=== PATIENT | male | born 1940 | race Caucasian/White ===

== ENCOUNTER 2019-01-08 20:37 | Inpatient (IN) ==
--- OUTSIDE RECORDS SUMMARY | 2019-01-08 20:40 | External Medical Summary | Continuity of Care Document ---
:1940 Author Name Yu Daly Address Unavailable Unavailable , Care Team Providers Name Role Phone Tj Daly Unavailable [email or web address] [place] Farhan Roy Unavailable Unavailable Unavailable Unavailable Unavailable Assessments Assessed Problems:History of basal cell carcinomaActinic keratosis Problems History of basal cell carcinoma (V10.83) (Z85.828) Actinic keratosis (702.0) (L57.0) Allergies and Adverse Reactions Penicillins (Allergy) Sulfa Drugs (Allergy) Medications Flonase 50 MCG/ACT SUSP Refills: 0 Viagra 100 MG Oral Tablet Refills: 0 metFORMIN HCl - 1000 MG Oral Tablet; TAKE 1 TABLET TWICE ATIYA LY. Quantity: 60 Refills: 0 Aspirin 81 MG TABS Refills: 0 Atorvastatin Calcium 20 MG Oral Tablet; TAKE 1 TABLET DAILY. Quantity: 30 Refills: 6 Tylenol Extra Strength 500 MG Oral Tablet Refills: 0 Procedures Procedures not documented Immunizations Immunizations not documented Family History Mother Family history of skin cancer (V16.8) (Z80.8) Status: Active Social History - Smoking Status Never smoker Interventions Follow-ups/ReferralsFollow-up as needed; Done: 01 Jan 2017 Plan of Treatment Planned Observations Planned Goals not documented Results No Known Results Results not documented Encounters Appointment; Rah Spencer M.D. 01-Jan-2017 14:30 Encounter Diagnosis: Problem not documented
[2019-01-08 22:52] LABS: Basophils # (auto) 0.02 K/uL (0-0.2); Basophils % (auto) 0.2 %; Eosinophils # (auto) 0.17 K/uL (0-0.5); Eosinophils % (auto) 2.1 %; Hematocrit (blood only) 37.2 % (42-52); Hemoglobin 12.4 g/dL (14.0-18.0); Immature Granulocytes # (auto) 0.01 K/uL (0.00-0.02); Immature Granulocytes % (auto) 0.1 %; Lymphocytes # (auto) 0.63 K/uL (1.2-3.4); Lymphocytes % (auto) 7.8 %; Mean Corpuscular Hemoglobin 29.4 pg (25-34); Mean Corpuscular Hgb Conc 33.3 g/dL (32-36); Mean Corpuscular Volume 88.2 fL (80-100); Mean Platelet Volume 8.6 fL (7.4-10.4); Monocytes # (auto) 0.66 K/uL (0.11-0.59); Monocytes % (auto) 8.2 %; Neutrophils # (auto) 6.59 K/uL (1.4-6.5); Neutrophils % (auto) 81.6 %; Platelet Count 270 K/uL (130-400); RDW Coefficient of Variation 12.7 % (11.5-14.5); RDW Standard Deviation 40.8 fL (36.4-46.3); Red Blood Count 4.22 M/uL (4.7-6.1); White Blood Count 8.08 K/uL (4.8-10.8)
[2019-01-08 23:08] LABS: BUN Creatinine Ratio 23.9 (10-20); Blood Urea Nitrogen 18 mg/dl (7-18); Calcium 8.7 mg/dl (8.5-10.1); Carbon Dioxide 27 mmol/L (21-32); Chloride 98 mmol/L (98-107); Est GFR (African American) 101.8; Est GFR (Non-African American) 87.9; Glucose 130 mg/dl (70-99); Potassium 4.2 mmol/L (3.5-5.1); Sodium 133 mmol/L (136-145)
[2019-01-08 23:09] LABS: Partial Thromboplastin Time 27.1 Seconds (21.0-31.0); Prothrombin Time 10.5 Seconds (9.0-12.0)
--- NOTE | 2019-01-08 23:12 | XRay Report ---
XR hip LT 2V w pelvis CLINICAL HISTORY: 78 years-old Male presenting with fall, left hip pain. TECHNIQUE: Frontal view of the pelvis and frontal and frog-leg lateral views of the left hip were obt ained. COMPARISON: None. FINDINGS: Nondisplaced transcervical fracture of the left femoral neck. There is mild impaction predominantly a t the superior margin. There is mild valgus angulation. The left femoral head remains congruent in th e acetabulum. Moderate degenerative changes of the left hip including suspected joint space loss as w ell as osteophytosis. A lesser degree of degenerative change in the right hip. Bony pelvis intact. Ar harish lines of the sacrum intact. Mild degenerative changes in the lower lumbar spine. Coil rachel p roject over the central and left abdomen indicative of prior hernia repair. Additional coil stable pr ojects in the parasymphyseal region. Surgical clip noted in the right lower quadrant with a moderate stool burden. IMPRESSION: 1. Mildly impacted and angulated transcervical left femoral neck fracture. 2. Moderate left hip degenerative change. Electronically signed by: Champ Aceves M.D. 01/08/2019 11:10 PM
[2019-01-08 23:18] LABS: Appearance Urine Clear (Clear); Bilirubin Urine Negative (Negative); Blood Urine Negative (Negative); Color Urine Yellow; Glucose Urine UA Negative (Negative); Ketones Urine Negative (Negative); Leukocyte Esterase Urine Negative (Negative); Nitrite Urine Negative (Negative); Protein Urine Negative (Negative); Specific Gravity Urine 1.024 (1.000-1.030); Urobilinogen Urine Negative (Negative); pH Urine 5.5 (4.5-7.5)
[2019-01-08] MEDS ORDERED: ACETAMINOPHEN 325 MG TAB PO STA (23:33)
--- NOTE | 2019-01-08 23:34 | History & Physical Report ---
Date of Service January 08, 2019 Assessment & Plan (1) Closed fracture of left hip: Secondary to mechanical fall hypertension, stable hyperlipidemia on statin Rx DM 2 on oral medications. Well-controlled as of recent outpatient hemoglobin A1c of 21 December 2015 Normocytic anemia, unknown duration GMF Orthopedics consult RE left hip fracture (Patient's requesting for Dr. Guzmán of [facility] No medical contraindication to surgery if recommended by Orthopedics and patient/family agreeable to attendant procedural benefits and risks. ISS BG goal 140-180, update hemoglobin A1c Anemia work-up, transfuse PRBC if hemoglobin less than 7 and/or for symptomatic anemia DVT prophylaxis SCDs. Recommend pharmacologic anticoagulation if stool Hemoccult negative and bleeding risk deemed to be minimal and negligible pending Orthopedics evaluation. Full code Patient's requesting updates from providers. Ms. Ingrid Ferguson, contact #[phone]. History of Present Illness Chief Complaint: Left hip pain Primary Care Provider: Dr. DORA MCGARRY from [place], [place] History obtained from patient, family, and records. Medical history significant for hypertension, hyperlipidemia, history diverticulosis, colonic polyps, DM 2 on oral medications. Patient is a current resident of [place], [place] who is currently in [employer] [place] for the football season. Patient was crossing the road around lunchtime today when he got distracted subsequently tripping over a curb and landing on his left side. Had trouble getting up. No head trauma, no chest pain, no S OB, no LOC. Refused ER consultation due to a lunch time business meeting. Persistent left-sided hip pain at the restaurant and at home. Medical History as above Surgical History : Cholecystectomy, cataract surgery, hernia repair, laser trabeculoplasty, no surgery, knee surgery Family History : Heart disease Personal/Social history : Non-smoker, occasional Et[employer] intake, retired [employer] employee Baseline Functionality : able to do at least 8000 steps a day at home without rest/exertional chest pain, S OB prior to injury Allergies Allergy/AdvReac Type Severity Reaction Status Date / Time Penicillins Allergy Intermediate joints Verified 01/09/19 00:00 swell/redness Sulfa (Sulfonamide Allergy Unknown Unknown Verified 01/09/19 00:00 Antibiotics) Home Medications Home Medications Medication Instructions Recorded Confirmed Type aspirin 81 mg PO DAILY 01/09/19 01/09/19 History fluticasone propionate [Flonase 2 spray INTRANASAL DAILY 01/09/19 01/09/19 History Allergy Relief] metformin 1,000 mg PO BID 01/09/19 01/09/19 History simvastatin 20 mg PO PM 01/09/19 01/09/19 History Past Med/Surg History Medical History Diabetes Surgical History History of elbow surgery Social History Preferred Language: Sinhala Communication Ability: Effective Autographer Required: No Beliefs That Will Affect Care: None Current Living Situation: Spouse Other Information That Helps Us Care for You: No Feels Safe at Home: Yes Safety Concerns: Feels Safe At This Time Smoking Status: Never smoker Hx Alcohol Use: No Hx Substance Use: No Review of Systems Review of Systems: As per HPI, all 10 systems reviewed, all other ROS negative Physical Exam Physical Exam: GENERAL: Comfortable, pleasant, no respiratory distress SKIN: Pallor , warm HEENT: pale palpebral conjunctivae, no ptosis, dry buccal mucosa NECK : Supple, no tenderness CHEST : CTA, no tenderness HEART : RRR, no obvious murmurs ABDOMEN: Soft, nontender EXTREMITIES : Left hip tenderness, no LE swelling NEUROLOGIC : Coherent, no facial asymmetry, no other gross focality Results & Data Vital Signs (Past 12 Hours) Vital Signs Temp Pulse Resp BP Pulse Ox 01/08/19 22:47 87 18 129/90 94 01/08/19 20:45 36.6 C 90 18 121/73 96 Laboratory Results Laboratory Results WBC 8.08 K/uL (4.8-10.8) 01/08/19 22:43 RBC 4.22 M/uL (4.7-6.1) L 01/08/19 22:43 Hgb 12.4 g/dL (14.0-18.0) L 01/08/19 22:43 Hct 37.2 % (42-52) L 01/08/19 22:43 MCV 88.2 fL (80-100) 01/08/19 22:43 MCH 29.4 pg (25-34) 01/08/19 22:43 MCHC 33.3 g/dL (32-36) 01/08/19 22:43 RDW Std Deviation 40.8 fL (36.4-46.3) 01/08/19 22:43 RDW Coeff of Kailyn 12.7 % (11.5-14.5) 01/08/19 22:43 Plt Count 270 K/uL (130-400) 01/08/19 22:43 MPV 8.6 fL (7.4-10.4) 01/08/19 22:43 Immature Gran % (Auto) 0.1 % 01/08/19 22:43 Neut % (Auto) 81.6 % 01/08/19 22:43 Lymph % (Auto) 7.8 % 01/08/19 22:43 [place] % (Auto) 8.2 % 01/08/19 22:43 Eos % (Auto) 2.1 % 01/08/19 22:43 Baso % (Auto) 0.2 % 01/08/19 22:43 Immature Gran # (Auto) 0.01 K/uL (0.00-0.02) 01/08/19 22:43 Neut # (Auto) 6.59 K/uL (1.4-6.5) H 01/08/19 22:43 Lymph # (Auto) 0.63 K/uL (1.2-3.4) L 01/08/19 22:43 [place] # (Auto) 0.66 K/uL (0.11-0.59) H 01/08/19 22:43 Eos # (Auto) 0.17 K/uL (0-0.5) 01/08/19 22:43 Baso # (Auto) 0.02 K/uL (0-0.2) 01/08/19 22:43 PT 10.5 Seconds (9.0-12.0) 01/08/19 22:43 INR 1.0 (0.9-1.1) 01/08/19 22:43 APTT 27.1 Seconds (21.0-31.0) 01/08/19 22:43 PTT Ratio 1.0 01/08/19 22:43 Sodium 133 mmol/L (136-145) L 01/08/19 22:43 Potassium 4.2 mmol/L (3.5-5.1) 01/08/19 22:43 Chloride 98 mmol/L (98-107) 01/08/19 22:43 Carbon Dioxide 27 mmol/L (21-32) 01/08/19 22:43 Anion Gap 8.0 (3-11) 01/08/19 22:43 BUN 18 mg/dl (7-18) 01/08/19 22:43 Creatinine 0.75 mg/dl (0.6-1.4) 01/08/19 22:43 Est Cr Clr Drug Dosing Not Reportable 01/08/19 22:43 Est GFR ( Amer) 101.8 01/08/19 22:43 Est GFR (Non-Af Amer) 87.9 01/08/19 22:43 BUN/Creatinine Ratio 23.9 (10-20) H 01/08/19 22:43 Glucose 130 mg/dl (70-99) H 01/08/19 22:43 Calcium 8.7 mg/dl (8.5-10.1) 01/08/19 22:43 Magnesium 2.0 mg/dl (1.8-2.4) 01/08/19 22:43 Urine Color Yellow 01/08/19 23:00 Urine Appearance Clear (Clear) 01/08/19 23:00 Urine pH 5.5 (4.5-7.5) 01/08/19 23:00 Ur Specific [place] 1.024 (1.000-1.030) 01/08/19 23:00 Urine Protein Negative (Negative) 01/08/19 23:00 Urine Glucose (UA) Negative (Negative) 01/08/19 23:00 Urine Ketones Negative (Negative) 01/08/19 23:00 Urine Blood Negative (Negative) 01/08/19 23:00 Urine Nitrite Negative (Negative) 01/08/19 23:00 Urine Bilirubin Negative (Negative) 01/08/19 23:00 Urine Urobilinogen Negative (Negative) 01/08/19 23:00 Ur Leukocyte Esterase Negative (Negative) 01/08/19 23:00 Diagnostic Findings Left hip x-ray: 1. Mildly impacted and angulated transcervical left femoral neck fracture. 2. Moderate left hip degenerative change. Chest x-ray as per my interpretation : atelectasis EKG as per my interpretation : Rate 80, NSR, normal axis, no ischemia (1) Closed fracture of left hip Encounter type: initial encounter Qualified Code(s): S72.002A - Fracture of unspecified part of neck of left femur, initial encounter for closed fracture
[2019-01-08 23:57] LABS: Alanine Aminotransferase 17 U/L (12-78); Albumin Level 3.6 gm/dl (3.4-5.0); Alkaline Phosphatase 113 U/L (45-117); Bilirubin Direct 0.1 mg/dl (0-0.2); Bilirubin,Total 0.3 mg/dl (0.2-1); Creatine Kinase 51 U/L (39-308); Total Protein 7.3 gm/dl (6.4-8.2)
[2019-01-09] MEDS ORDERED: CEFAZOLIN 1000MG 1,000 MG/7.5 ML SYR IV SCH
[2019-01-09 00:06] LABS: Aspartate Aminotransferase 6 U/L (15-37)
[2019-01-09] MEDS ORDERED: GLUCOSE 40% GEL 15 GM TUBE PO PRN (00:47)
[2019-01-09] MEDS ORDERED: DEXTROSE 50% 50 ML SYRINGE IV PRN (00:47)
[2019-01-09] MEDS ORDERED: MAGNESIUM HYDROXIDE SUSP 30 ML UDC PO PRN (00:47)
[2019-01-09] MEDS ORDERED: CARBOHYDRATES FOR HYPOGLYCEMIA PO PRN (00:47)
[2019-01-09] MEDS ORDERED: MoRPHine SULFATE 2 MG/ML CARP IV PRN (00:47)
[2019-01-09] MEDS ORDERED: bisacodyL 10 MG SUPP PR PRN (00:47)
[2019-01-09] MEDS ORDERED: PROMETHAZINE HCL 12.5 MG in SODIUM CHLORIDE 0.9% 50 ML IV PRN (00:47)
[2019-01-09] MEDS ORDERED: GLUCOSE 10 TABS/TUBE PO PRN (00:47)
[2019-01-09] MEDS ORDERED: OXYCODONE HCL IR 5 MG TAB (IMMEDIATE RELEASE) PO PRN (00:47)
[2019-01-09] MEDS ORDERED: NALOXONE HCL 0.4 MG/1 ML VIAL/CARP IV PRN ×2 (00:47→18:51)
[2019-01-09] MEDS ORDERED: GLUCAGON FOR INJ 1 MG VIAL SQ PRN (00:47)
--- NOTE | 2019-01-09 01:09 | Emergency Department Note ---
Entered by Angelika Ely acting as a scribe for Jama Ndiaye MD History of Present Illness General Chief complaint: Fall Stated complaint: FALL, LT HIP PAIN Source: patient History of Present Illness Onset (ago): hour(s) Location: head (Fall) Pain Consistency: + other (Episode) Maximum Pain Intensity: 7 Quality: + sharp Exacerbated By: + movement Associated symptoms: no chest pain and no other (Abdominal pain, shoulder pain, knee pain, ankle pain) Treatments prior to arrival: none The patient is a 78 year old male with a past medical history of DM presenting to the Emergency Department complaining of an episode of a fall starting at 1115 today. The patient reports that he tripped over a curb falling on his left side. He states that his left hip is painful and that walking worsens his pain. He describes his hip pain as a sharp sensation when he tried to put pressure on it. He notes that he took no medications [employer] for his symptoms. He adds that his tetanus shot is up to date. The patient denies chest pain, abdominal pain, shoulder pain, knee pain and ankle pain. Home Medications Home Medications Medication Instructions Recorded Confirmed Type aspirin 81 mg PO DAILY 01/09/19 01/09/19 History fluticasone propionate [Flonase 2 spray INTRANASAL DAILY 01/09/19 01/09/19 History Allergy Relief] metformin 1,000 mg PO BID 01/09/19 01/09/19 History simvastatin 20 mg PO PM 01/09/19 01/09/19 History Allergies Allergy/AdvReac Type Severity Reaction Status Date / Time Penicillins Allergy Intermediate joints Verified 01/09/19 00:00 swell/redness Sulfa (Sulfonamide Allergy Unknown Unknown Verified 01/09/19 00:00 Antibiotics) Past Med/Surg History Medical History Diabetes Surgical History History of elbow surgery Social History Feels Safe at Home: Yes Smoking Status: Never smoker Review of Systems See HPI for pertinent positives & negatives. and A total of 10 systems reviewed and were otherwise negative Physical Exam Vital Signs Vital Signs - 24 hr 01/08/19 20:45 01/08/19 22:47 Temperature 36.6 C Temperature Source Oral Sepsis Recent Fever Within 48 Hours No Sepsis Action Taken by Nursing No Action Required Pulse Rate 90 87 Pulse Rate from SpO2 Sensor 83 Respiratory Rate 18 18 Respiratory Depth Normal Blood Pressure 121/73 129/90 Blood Pressure Mean 89 103 Pulse Oximetry 96 94 Oxygen Delivery Method Room Air Room Air Constitutional: Vital signs reviewed. Eyes: Pupils are equal round reactive to light. Conjunctiva are noninjected. ENT: Pharynx is clear without erythema or exudate. Mucous membranes are moist. Neck supple without meningeal signs. Respiratory: Clear to auscultation bilaterally. Breath sounds are equal bilaterally. Cardiovascular: Regular rate and rhythm. No rubs or gallops. GI: Soft, nondistended and nontender. Bowel sounds are present. Musculoskeletal: No peripheral edema. Tenderness over the left hip. No shorte ambar. Erythema over left elbow without bony tenderness. Abrasion to left knee without bony tenderness. No ankle tenderness. No midline tenderness to the cervical spine. Integumentary: No cyanosis. Neurological: The patient is awake and alert. No focal deficits. Psychiatric: Normal affect. Course 2149: The patient was evaluated in room C1B, and a complete history and physical examination were performed. 2225: I discussed the patients case with Dr. Yi Pemberton hospitalist. He will evaluate the patient for further management. 2227: I updated the patient at this time. Consultations Consultation #1: I discussed the patients case with Dr. Yi Pemberton primary children's hospitalist. He will evaluate the patient for further management. Time: 22:25 Administered Medications Discontinued Medications Acetaminophen (Tylenol) 650 mg PO NOW STA Stop: 01/08/19 23:34 Last Admin: 01/08/19 23:50 Dose: 650 mg Documented by: [id number] Medical Decision Making Differential Diagnosis Differentials include hip fracture, sprain, contusion, dislocation and fall amongst others. Medical Records Attestation: I reviewed the patient's medical records. Home Medications Current Medication List: was personally reviewed by me Laboratory Data Attestation: I reviewed the patient's lab results. Result diagrams: 01/08/19 22:43 01/08/19 22:43 Lab Results 01/08/19 01/08/19 01/08/19 Range/Units 22:43 22:43 22:43 WBC 8.08 (4.8-10.8) K/uL RBC 4.22 L (4.7-6.1) M/uL Hgb 12.4 L (14.0-18.0) g/dL Hct 37.2 L (42-52) % MCV 88.2 (80-100) fL MCH 29.4 (25-34) pg MCHC 33.3 (32-36) g/dL RDW Std Deviation 40.8 (36.4-46.3) fL RDW Coeff of Kailyn 12.7 (11.5-14.5) % Plt Count 270 (130-400) K/uL MPV 8.6 (7.4-10.4) fL Immature Gran % (Auto) 0.1 % Neut % (Auto) 81.6 % Lymph % (Auto) 7.8 % [place] % (Auto) 8.2 % Eos % (Auto) 2.1 % Baso % (Auto) 0.2 % Immature Gran # (Auto) 0.01 (0.00-0.02) K/uL Neut # (Auto) 6.59 H (1.4-6.5) K/uL Lymph # (Auto) 0.63 L (1.2-3.4) K/uL [place] # (Auto) 0.66 H (0.11-0.59) K/uL Eos # (Auto) 0.17 (0-0.5) K/uL Baso # (Auto) 0.02 (0-0.2) K/uL PT 10.5 (9.0-12.0) Seconds INR 1.0 (0.9-1.1) APTT 27.1 (21.0-31.0) Seconds PTT Ratio 1.0 Sodium (136-145) mmol/L Potassium (3.5-5.1) mmol/L Chloride (98-107) mmol/L Carbon Dioxide (21-32) mmol/L Anion Gap (3-11) BUN (7-18) mg/dl Creatinine (0.6-1.4) mg/dl Est Cr Clr Drug Dosing Est GFR ( Amer) Est GFR (Non-Af Amer) BUN/Creatinine Ratio (10-20) Glucose (70-99) mg/dl Calcium (8.5-10.1) mg/dl Magnesium (1.8-2.4) mg/dl Total Bilirubin (0.2-1) mg/dl Direct Bilirubin (0-0.2) mg/dl AST (15-37) U/L ALT (12-78) U/L Alkaline Phosphatase (45-117) U/L Total Creatine Kinase (39-308) U/L Total Protein (6.4-8.2) gm/dl Albumin (3.4-5.0) gm/dl Urine Color Urine Appearance (Clear) Urine pH (4.5-7.5) Ur Specific [place] (1.000-1.030) Urine Protein (Negative) Urine Glucose (UA) (Negative) Urine Ketones (Negative) Urine Blood (Negative) Urine Nitrite (Negative) Urine Bilirubin (Negative) Urine Urobilinogen (Negative) Ur Leukocyte Esterase (Negative) Blood Type B Positive Antibody Screen NEGATIVE 01/08/19 01/08/19 01/08/19 Range/Units 22:43 22:43 23:00 WBC (4.8-10.8) K/uL RBC (4.7-6.1) M/uL Hgb (14.0-18.0) g/dL Hct (42-52) % MCV (80-100) fL MCH (25-34) pg MCHC (32-36) g/dL RDW Std Deviation (36.4-46.3) fL RDW Coeff of Kailyn (11.5-14.5) % Plt Count (130-400) K/uL MPV (7.4-10.4) fL Immature Gran % (Auto) % Neut % (Auto) % Lymph % (Auto) % [place] % (Auto) % Eos % (Auto) % Baso % (Auto) % Immature Gran # (Auto) (0.00-0.02) K/uL Neut # (Auto) (1.4-6.5) K/uL Lymph # (Auto) (1.2-3.4) K/uL [place] # (Auto) (0.11-0.59) K/uL Eos # (Auto) (0-0.5) K/uL Baso # (Auto) (0-0.2) K/uL PT (9.0-12.0) Seconds INR (0.9-1.1) APTT (21.0-31.0) Seconds PTT Ratio Sodium 133 L (136-145) mmol/L Potassium 4.2 (3.5-5.1) mmol/L Chloride 98 (98-107) mmol/L Carbon Dioxide 27 (21-32) mmol/L Anion Gap 8.0 (3-11) BUN 18 (7-18) mg/dl Creatinine 0.75 (0.6-1.4) mg/dl Est Cr Clr Drug Dosing Not Reportable Est GFR ( Amer) 101.8 Est GFR (Non-Af Amer) 87.9 BUN/Creatinine Ratio 23.9 H (10-20) Glucose 130 H (70-99) mg/dl Calcium 8.7 (8.5-10.1) mg/dl Magnesium 2.0 (1.8-2.4) mg/dl Total Bilirubin 0.3 Cancelled (0.2-1) mg/dl Direct Bilirubin 0.1 Cancelled (0-0.2) mg/dl AST 6 L Cancelled (15-37) U/L ALT 17 Cancelled (12-78) U/L Alkaline Phosphatase 113 Cancelled (45-117) U/L Total Creatine Kinase 51 Cancelled (39-308) U/L Total Protein 7.3 Cancelled (6.4-8.2) gm/dl Albumin 3.6 Cancelled (3.4-5.0) gm/dl Urine Color Yellow Urine Appearance Clear (Clear) Urine pH 5.5 (4.5-7.5) Ur Specific [place] 1.024 (1.000-1.030) Urine Protein Negative (Negative) Urine Glucose (UA) Negative (Negative) Urine Ketones Negative (Negative) Urine Blood Negative (Negative) Urine Nitrite Negative (Negative) Urine Bilirubin Negative (Negative) Urine Urobilinogen Negative (Negative) Ur Leukocyte Esterase Negative (Negative) Blood Type Antibody Screen Imaging Data Attestation: I personally reviewed and interpreted this imaging study as zechariaho ws: My Impression: XR Hip LT 2V w Pelvis: Left femoral neck fracture. Mildly displaced. No pelvic fracture. Chest x-ray per my interpretation shows no acute cardiopulmonary process. ECG Data Attestation: I personally reviewed and interpreted this ECG as follows: Indication: other (Pre operative EKG) Rate (beats per minute): 81 Rhythm: normal sinus Findings: + PVC; no ST elevation Blood Pressure Blood Pressure Findings: Elevated blood pressure Blood Pressure Disposition: further management by hospitalist MDM Narrative I did evaluate the patient as noted above. The patient is presenting with left- sided hip pain after mechanical fall today. I did order and personally reviewed the images of the patient's hip x-ray and pelvic x-ray as described above. He has a femoral neck fracture to the left hip. I did discuss the test results with the patient. He will require hospitalization for further care and evaluation. IV access was established. I did order and personally review the patient's 12-lead EKG as described above. He has no acute ischemia. I did order and review the patient's blood work as noted in the electronic medical record. He has mild anemia. Electrolytes demonstrate mild hyponatremia but otherwise are normal. I order a chest x-ray which shows no acute process per my interpretation. There is no infiltrate or effusion. I did discuss the case with the hospitalist and major case detective. Impression & Plan Closed fracture of left hip, Fall, Contusion of multiple sites Discharge Plan Visit Data *Final* Discharge Date/Time: 01/09/19 00:00 Chief Complaint: Fall Stated Complaint: FALL, LT HIP PAIN ED Provider: Jama Ndiaye Discharge Problem: Closed fracture of left hip, Fall, Contusion of multiple sites Patient Disposition: Admitted As Inpatient Discharge Instructions Interventions: ED Discharge Assessment Last Done: 01/09/19 00:00 Discharge Problem: Closed fracture of left hip Qualifiers: Encounter type: initial encounter Qualified Code(s): S72.002A - Fracture of unspecified part of neck of left femur, initial encounter for closed fracture Fall Qualifiers: Encounter type: initial encounter Qualified Code(s): W19.XXXA - Unspecified fall, initial encounter The scribe's documentation has been prepared under my direction and personally reviewed by me in its entirety. I confirm that the note above accurately reflec ts all work, treatment, procedures, and medical decision making performed by me.
[2019-01-09] MEDS: SODIUM CHLORIDE 0.9% 1000ML 1,000 ML IV SCH ×2 (01:13→20:36)
[2019-01-09] MEDS: INSULIN ASPART 100 UNITS/ML 3 ML PEN SC SCH ×4 (01:34→19:35)
[2019-01-09 06:17] LABS: Estimated Average Glucose 154 mg/dl
[2019-01-09 07:07] LABS: Basophils # (auto) 0.02 K/uL (0-0.2); Basophils % (auto) 0.4 %; Eosinophils # (auto) 0.49 K/uL (0-0.5); Eosinophils % (auto) 9.1 %; Hemoglobin 11.6 g/dL (14.0-18.0); Immature Granulocytes # (auto) 0.01 K/uL (0.00-0.02); Immature Granulocytes % (auto) 0.2 %; Lymphocytes # (auto) 0.82 K/uL (1.2-3.4); Lymphocytes % (auto) 15.2 %; Mean Corpuscular Hemoglobin 28.8 pg (25-34); Mean Corpuscular Hgb Conc 33.1 g/dL (32-36); Mean Corpuscular Volume 86.8 fL (80-100); Mean Platelet Volume 8.8 fL (7.4-10.4); Monocytes # (auto) 0.53 K/uL (0.11-0.59); Monocytes % (auto) 9.8 %; Neutrophils # (auto) 3.52 K/uL (1.4-6.5); Neutrophils % (auto) 65.3 %; Platelet Count 256 K/uL (130-400); RDW Coefficient of Variation 12.6 % (11.5-14.5); RDW Standard Deviation 40.6 fL (36.4-46.3); Red Blood Count 4.03 M/uL (4.7-6.1); Reticulocyte % 0.7 % (0.5-2.0); Reticulocytes # 0.03 10^6/uL (0.02-0.10); White Blood Count 5.39 K/uL (4.8-10.8)
--- NOTE | 2019-01-09 07:15 | XRay Report ---
XR chest 1V portable HISTORY: Hip fracture. COMPARISON: None. FINDINGS: Small left basilar linear densities favor subsegmental atelectasis or scarring. Otherwise, the lungs are clear. Small nodular density at the right lung base favors a nipple shadow. The heart i s normal in size. No pleural effusions. No pneumothorax. IMPRESSION: No acute process. Electronically signed by: Elias Lo M.D. 01/09/2019 7:13 AM
[2019-01-09 07:33] LABS: BUN Creatinine Ratio 19.4 (10-20); Calcium 8.3 mg/dl (8.5-10.1); Creatinine Clr Calc Pharmacy 94.6 ml/min; Est GFR (Non-African American) 93.2; Potassium 3.7 mmol/L (3.5-5.1)
[2019-01-09 07:38] LABS: Ferritin 95.6 ng/ml (8-388)
[2019-01-09 07:45] LABS: Folate (Folic Acid) 8.62 ng/ml (>5.38)
[2019-01-09] MEDS: FLUTICASONE PROPIONATE NA SPR 16 GM BTL NAE SCH (07:58)
[2019-01-09] MEDS ORDERED: ACETAMINOPHEN 325 MG TAB PO PRN (08:05)
--- NOTE | 2019-01-09 08:40 | Orthopedic Consultation ---
Date of Consultation January 09, 2019 Assessment & Plan (1) Closed fracture of left hip: X-rays have been reviewed with Dr. Guzmán who is available to do the surgery this afternoon. Plans will be for 7.3 cannulated screw fixation of the left hip fracture. Plans have been discussed with the patient and his who is present. All questions answered. I will discusss the plan with Dr Lock to make sure of medical clearance. Plan for OR today if cleared. History of Present Illness Reason for Consultation: Left hip fracture Attending Physician: Jenelle Lock MD History of Present Illness Patient is a 78-year-old white male admitted by [facility] service for left hip fracture. Patient is a resident of [facility] and is here with his for the football season. He apparently was crossing the street [place] and was not paying attention and tripped over the curb. He fell onto his left s lashaun and had immediate pain in his left hip and groin. He denies loss of consciousness. There was no shortness of breath, chest pain, lightheadedness before or after the fall. He was brought to the emergency room here at [facility] and was seen by the staff. X-rays were taken and was found that he had a minimally displaced left femoral neck fracture. He was also noted to have moderate DJD of the left hip but the patient denies any previous left hip pain prior to the fall. He was admitted by the [facility] service and we have been asked to take care of his hip fracture. Currently he is awake and alert and without complaints. Pain is controlled while at rest. He states that he did bump his left knee and his left elbow, wrist during the fall but has no overt discomfort with these areas. No other complaints at this time. Allergies Allergy/AdvReac Type Severity Reaction Status Date / Time Penicillins Allergy Intermediate joints Verified 01/09/19 00:00 swell/redness Sulfa (Sulfonamide Allergy Unknown Unknown Verified 01/09/19 00:00 Antibiotics) Home Medications Home Medications Medication Instructions Recorded Confirmed Type aspirin 81 mg PO DAILY 01/09/19 01/09/19 History fluticasone propionate [Flonase 2 spray INTRANASAL DAILY 01/09/19 01/09/19 History Allergy Relief] metformin 1,000 mg PO BID 01/09/19 01/09/19 History simvastatin 20 mg PO PM 01/09/19 01/09/19 History Patient History Medical History Diabetes Surgical History History of elbow surgery History of total bilateral knee replacement Social History Preferred Language: Malawian Communication Ability: Effective Child Care Specialist Required: No Beliefs That Will Affect Care: None Current Living Situation: Spouse Other Information That Helps Us Care for You: No Feels Safe at Home: Yes Safety Concerns: Feels Safe At This Time Smoking Status: Never smoker Hx Alcohol Use: No Hx Substance Use: No Physical Exam Physical Exam: On examination, patient is a well-developed well-nourished white male, alert and oriented x3. No acute distress. He is currently sitting up in bed without complaints. Initially focusing the exam on the left lower extremity, leg lengths appear equal. He has good range of motion of his left ankle and toes. He has an abrasion just distal to the left patella. I can take his left knee through gentle range of motion at this time without discomfort. He has no overt swelling, ecchymosis of the left hip. Internal and external range of motion causes him some mild groin pain. Flexion of the left hip causes groin pain as well with less pain with extension. Mild discomfort with abduction and adduction. Right lower extremity is unaffected and he has good range of motion of the right hip knee and ankle. Scars are seen over both knees that are well-healed from previous TKA. He has no pain over the bilateral shoulders right elbow or bilateral wrists. Mild discomfort at the left elbow with there is a noted abrasion. Range of motion is within normal limits. He has a noted splint on the left hand that gives his left CMC joint support and has history of CMC joint arthritis. He denies any neck pain at this time on palpation. Range of motion within normal limits. He denies any thoracic or lumbar pain at this time. He denies any radiculopathy down the lower extremities. Or the upper extremities. No gross motor or sensory loss at this time. Distal pulses are equal bilaterally of the upper lower extremities. Results & Data Vital Signs (Past 12 Hours) Vital Signs Temp Pulse Pulse Resp BP BP Pulse Ox 01/09/19 07:36 36.6 C 81 16 129/73 92 01/09/19 00:20 36.6 C 80 18 134/76 92 01/09/19 00:10 36.6 C 80 18 134/76 92 01/08/19 23:53 86 20 126/82 94 01/08/19 22:47 87 18 129/90 94 01/08/19 20:45 36.6 C 90 18 121/73 96 Laboratory Results Laboratory Results WBC 5.39 K/uL (4.8-10.8) 01/09/19 06:32 RBC 4.03 M/uL (4.7-6.1) L 01/09/19 06:32 Hgb 11.6 g/dL (14.0-18.0) L 01/09/19 06:32 Hct 35.0 % (42-52) L 01/09/19 06:32 MCV 86.8 fL (80-100) 01/09/19 06:32 MCH 28.8 pg (25-34) 01/09/19 06:32 MCHC 33.1 g/dL (32-36) 01/09/19 06:32 RDW Std Deviation 40.6 fL (36.4-46.3) 01/09/19 06:32 RDW Coeff of Kailyn 12.6 % (11.5-14.5) 01/09/19 06:32 Plt Count 256 K/uL (130-400) 01/09/19 06:32 MPV 8.8 fL (7.4-10.4) 01/09/19 06:32 Immature Gran % (Auto) 0.2 % 01/09/19 06:32 Neut % (Auto) 65.3 % 01/09/19 06:32 Lymph % (Auto) 15.2 % 01/09/19 06:32 Avery % (Auto) 9.8 % 01/09/19 06:32 Eos % (Auto) 9.1 % 01/09/19 06:32 Baso % (Auto) 0.4 % 01/09/19 06:32 Reticulocyte % (Auto) 0.7 % (0.5-2.0) 01/09/19 06:32 Immature Gran # (Auto) 0.01 K/uL (0.00-0.02) 01/09/19 06:32 Neut # (Auto) 3.52 K/uL (1.4-6.5) 01/09/19 06:32 Lymph # (Auto) 0.82 K/uL (1.2-3.4) L 01/09/19 06:32 Avery # (Auto) 0.53 K/uL (0.11-0.59) 01/09/19 06:32 Eos # (Auto) 0.49 K/uL (0-0.5) 01/09/19 06:32 Baso # (Auto) 0.02 K/uL (0-0.2) 01/09/19 06:32 Reticulocyte # 0.03 10^6/uL (0.02-0.10) 01/09/19 06:32 PT 10.5 Seconds (9.0-12.0) 01/08/19 22:43 INR 1.0 (0.9-1.1) 01/08/19 22:43 APTT 27.1 Seconds (21.0-31.0) 01/08/19 22:43 PTT Ratio 1.0 01/08/19 22:43 Sodium 132 mmol/L (136-145) L 01/09/19 06:32 Potassium 3.7 mmol/L (3.5-5.1) 01/09/19 06:32 Chloride 99 mmol/L (98-107) 01/09/19 06:32 Carbon Dioxide 27 mmol/L (21-32) 01/09/19 06:32 Anion Gap 6.0 (3-11) 01/09/19 06:32 BUN 13 mg/dl (7-18) 01/09/19 06:32 Creatinine 0.65 mg/dl (0.6-1.4) 01/09/19 06:32 Est Cr Clr Drug Dosing 94.6 ml/min 01/09/19 06:32 Est GFR ( Amer) 108.0 01/09/19 06:32 Est GFR (Non-Af Amer) 93.2 01/09/19 06:32 BUN/Creatinine Ratio 19.4 (10-20) 01/09/19 06:32 Glucose 112 mg/dl (70-99) H 01/09/19 06:32 POC Glucose 113 (70-99) H 01/09/19 05:28 Estimat Average Glucose 154 mg/dl 01/08/19 22:33 Hemoglobin A1c 7.0 % (4.5-5.6) H 01/08/19 22:33 Calcium 8.3 mg/dl (8.5-10.1) L 01/09/19 06:32 Magnesium 2.0 mg/dl (1.8-2.4) 01/08/19 22:43 Iron 26 mcg/dl (35-175) L 01/09/19 06:32 TIBC 254 mcg/dl (250-450) 01/09/19 06:32 Transferrin 209 mg/dl (200-360) 01/09/19 06:32 Ferritin 95.6 ng/ml (8-388) 01/09/19 06:32 Total Bilirubin 0.3 mg/dl (0.2-1) 01/08/19 22:43 Total Bilirubin Cancelled 01/08/19 22:43 Direct Bilirubin 0.1 mg/dl (0-0.2) 01/08/19 22:43 Direct Bilirubin Cancelled 01/08/19 22:43 AST 6 U/L (15-37) L 01/08/19 22:43 AST Cancelled 01/08/19 22:43 ALT 17 U/L (12-78) 01/08/19 22:43 ALT Cancelled 01/08/19 22:43 Alkaline Phosphatase 113 U/L (45-117) 01/08/19 22:43 Alkaline Phosphatase Cancelled 01/08/19 22:43 Total Creatine Kinase 51 U/L (39-308) 01/08/19 22:43 Total Creatine Kinase Cancelled 01/08/19 22:43 Total Protein 7.3 gm/dl (6.4-8.2) 01/08/19 22:43 Total Protein Cancelled 01/08/19 22:43 Albumin 3.6 gm/dl (3.4-5.0) 01/08/19 22:43 Albumin Cancelled 01/08/19 22:43 Vitamin B12 341 pg/ml (211-911) 01/09/19 06:32 Folate 8.62 ng/ml (>5.38) 01/09/19 06:32 Urine Color Yellow 01/08/19 23:00 Urine Appearance Clear (Clear) 01/08/19 23:00 Urine pH 5.5 (4.5-7.5) 01/08/19 23:00 Ur Specific [place] 1.024 (1.000-1.030) 01/08/19 23:00 Urine Protein Negative (Negative) 01/08/19 23:00 Urine Glucose (UA) Negative (Negative) 01/08/19 23:00 Urine Ketones Negative (Negative) 01/08/19 23:00 Urine Blood Negative (Negative) 01/08/19 23:00 Urine Nitrite Negative (Negative) 01/08/19 23:00 Urine Bilirubin Negative (Negative) 01/08/19 23:00 Urine Urobilinogen Negative (Negative) 01/08/19 23:00 Ur Leukocyte Esterase Negative (Negative) 01/08/19 23:00 Blood Type B Positive 01/08/19 22:43 Antibody Screen NEGATIVE 01/08/19 22:43 Diagnostic Findings [place], [place] [phone] XRay Report Patient: JAMA OLEA Date: 01/08/19 MR#: [id number]: [address] Acct ID:[id number]: Date: [address] [place] [address] Zip: [place] [address] Age: 78Location: ED Sex: M Room/Bed: Att Phy:Diagnosis: FALL, LT HIP PAIN Kimberly Phy: Frank MCGARRY Date: 01/08/19 Fam Phy:Interpreting Phy: Champ Aceves MD Admit Phy: Ordering Phy: Jama Ndiaye MD cc: ~ XR hip LT 2V w pelvis CLINICAL HISTORY: 78 years-old Male presenting with fall, left hip pain. TECHNIQUE: Frontal view of the pelvis and frontal and frog-leg lateral views of the left hip were obtained. COMPARISON: None. FINDINGS: Nondisplaced transcervical fracture of the left femoral neck. There is mild impaction predominantly at the superior margin. There is mild valgus angulation. The left femoral head remains congruent in the acetabulum. Moderate degenerative changes of the left hip including suspected joint space loss as well as osteophytosis. A lesser degree of degenerative change in the right hip. Bony pelvis intact. Arcuate lines of the sacrum intact. Mild degenerative changes in the lower lumbar spine. Coil rachel project over the central and left abdomen indicative of prior hernia repair. Additional coil stable projects in the parasymphyseal region. Surgical clip noted in the right lower quadrant with a moderate stool burden. IMPRESSION: 1. Mildly impacted and angulated transcervical left femoral neck fracture. 2. Moderate left hip degenerative change. Electronically signed by: Champ Aceves M.D. 01/08/2019 11:10 PM (1) Closed fracture of left hip Encounter type: initial encounter Qualified Code(s): S72.002A - Fracture of unspecified part of neck of left femur, initial encounter for closed fracture
[2019-01-09] MEDS ORDERED: FLUTICASONE PROPIONATE NA SPR 16 GM BTL NAE SCH (09:00)
--- NOTE | 2019-01-09 12:09 | Anesthesiology Consultation ---
Date of Service January 09, 2019 Assessment & Plan (1) Encounter for pre-operative examination: Chart Review Chart Review: Acceptable Risk for Surgery and Patient NOT seen in Pre Admission Testing Consults Requested none ASA ASA3 Proposed Anesthesia Anesthesia Type: MAC Spinal Risk / Benefits Reviewed With: PT / POA / Parent / Guardian, Accepts Plan and Informed Consent Obtained History Surgery Operation Date: 01/09/19 07:00 Proposed Procedures p Left Hip Cannulated Screw Open Reduction Internal Fixation - Wagner Guzmán MD Height/Weight Height: 5 ft 11 in Weight: 71.4 kg Allergies Allergy/AdvReac Type Severity Reaction Status Date / Time Penicillins Allergy Intermediate joints Verified 01/09/19 00:00 swell/redness Sulfa (Sulfonamide Allergy Unknown Unknown Verified 01/09/19 00:00 Antibiotics) Medications Home Medications Medication Instructions Recorded Confirmed Last Taken aspirin 81 mg PO DAILY 01/09/19 01/09/19 Unknown fluticasone propionate [Flonase 2 spray INTRANASAL DAILY 01/09/19 01/09/19 Unknown Allergy Relief] metformin 1,000 mg PO BID 01/09/19 01/09/19 Unknown simvastatin 20 mg PO PM 01/09/19 01/09/19 Unknown Active Medications Generic Name Dose Route Start Last Admin Trade Name Freq PRN Reason Stop Dose Admin Acetaminophen 650 mg 01/09/19 08:05 01/09/19 08:25 Tylenol PO 02/08/19 08:04 650 mg Q6H PRN Administration Pain Fluticasone Propionate 2 sprays 01/09/19 09:00 01/09/19 07:58 Flonase IFEANYI 02/08/19 08:59 2 sprays DAILY JULIA Administration Sodium Chloride 1,000 mls @ 50 mls/hr 01/09/19 00:47 01/09/19 01:13 Nss 1000ml IV 02/08/19 00:46 50 mls/hr .Q20H JULIA Administration Insulin Aspart 0 units 01/09/19 01:00 01/09/19 12:26 Novolog Flexpen SC 02/08/19 00:59 Not Given Q6 JULIA NPO Date Last Intake of Fluids: 01/08/19 Time Last Intake of Fluids: 22:00 Date Last Intake of Solids: 01/08/19 Time Last Intake of Solids: 17:30 Past Medical History Medical History Diabetes Exercise / Class Metabolic Activity II 4-5 Yardwork/Stairs/Walk up hill Past Surgical History Surgical History History of elbow surgery History of total bilateral knee replacement Past Anesthesia History No Hx of Anesthesia Complications and No Family Hx of Anesthesia Complications History of PONV No Hx of PONV and No Hx of Motion Sickness Social History Smoking Status: Never smoker Hx Alcohol Use: No Hx Substance Use: No Physical Exam Vital Signs Last Vital Signs Temp 37 C 01/09/19 16:06 Pulse 88 01/09/19 16:06 Resp 16 01/09/19 16:06 BP 140/83 01/09/19 16:06 Pulse Ox 93 01/09/19 16:06 Constitutional not obese ENMT Mouth: no dentition abnormality Thyromental Distance: > or= 3.5 Finger Breadths Mallampati Class: II Neck normal visual inspection and trachea midline; neck extension not limited Respiratory normal respiratory effort Auscultation: lungs clear to auscultation bilaterally Cardiovascular Rate/Rhythm: regular rate and regular rhythm Heart Sounds: no murmur Vessels: no carotid bruit Musculoskeletal Spine: lumbar spine normal to inspection; normal cervical ROM Neurologic moves all extremities Motor/Sensory: no sensory deficit Psychiatric Orientation: alert and oriented x 3 Testing Laboratory Results 01/09/19 06:32 01/09/19 06:32 PT 10.5 Seconds (9.0-12.0) 01/08/19 22:43 INR 1.0 (0.9-1.1) 01/08/19 22:43 APTT 27.1 Seconds (21.0-31.0) 01/08/19 22:43 Hemoglobin A1c 7.0 % (4.5-5.6) H 01/08/19 22:33 Urine Color Yellow 01/08/19 23:00 Urine Appearance Clear (Clear) 01/08/19 23:00 Urine pH 5.5 (4.5-7.5) 01/08/19 23:00 Ur Specific [place] 1.024 (1.000-1.030) 01/08/19 23:00 Urine Protein Negative (Negative) 01/08/19 23:00 Urine Glucose (UA) Negative (Negative) 01/08/19 23:00 Urine Ketones Negative (Negative) 01/08/19 23:00 Urine Nitrite Negative (Negative) 01/08/19 23:00 Ur Leukocyte Esterase Negative (Negative) 01/08/19 23:00 Blood Type B Positive 01/08/19 22:43 Antibody Screen NEGATIVE 01/08/19 22:43 01/09/19 05:28 POC Glucose 113 H Electrocardiogram Date: 01/08/19 Findings: + NSR @ (81) When compared with ECG of 09-JAN-2005 09:19, Nonspecific T wave abnormality no longer evident in Inferior leads Chest X-Ray Date: 01/08/19 Findings: + NAD
[2019-01-09] MEDS ORDERED: PROPOFOL IV EMULSION 10 MG/ML 20 ML VIAL IV ONE (15:42)
[2019-01-09] MEDS ORDERED: LIDOCAINE HCL 2% 2 ML VIAL/AMP(20MG/ML) INFIL ONE (15:42)
[2019-01-09] MEDS ORDERED: BUPIVACAINE 0.5 % 5 MG/1 ML PF 10ML VIAL ONE (15:55)
[2019-01-09] MEDS ORDERED: fentaNYL citrate 100 MCG/2 ML VIAL ONE (16:30)
[2019-01-09] MEDS ORDERED: MIDAZOLAM HCL 1 MG/ML 2ML VIAL ONE (16:30)
[2019-01-09] MEDS ORDERED: CEFAZOLIN 250 MG/ML 1 GM VIAL ONE (16:30)
[2019-01-09] MEDS ORDERED: KETAMINE HCL INJ 50 MG/ML 10 ML VIAL ONE ×2 (16:36→16:40)
[2019-01-09] MEDS ORDERED: ONDANSETRON INJ 2 MG/ML 2 ML VIAL IV PRN (16:59)
[2019-01-09] MEDS ORDERED: fentaNYL citrate 100 MCG/2 ML VIAL IV PRN (16:59)
[2019-01-09] MEDS ORDERED: ATROPINE SULFATE 0.1 MG/ML 10ML SYR IV PRN (16:59)
[2019-01-09] MEDS ORDERED: ePHEDrine sulfate 50 MG/ML AMP IV PRN (16:59)
--- NOTE | 2019-01-09 17:55 | Post Operative Brief Note ---
Immediate Post Op Note v1 Date of Surgery January 09, 2019 Pre & Post Diagnosis Operation Date: 01/09/19 07:00 Pre-Op Diagnosis: Left Femoral Neck Fracture Post-Op Diagnosis: Left Femoral Neck Fracture Procedure Operation Date: 01/09/19 07:00 Actual Procedures p Cannulated Screw Open Reduction Internal Fixation Left Femoral Neck Fracture(Left) - Wagner Guzmán MD Surgeon Wagner Guzmán MD Teacher Kindergarten Jose BRADLEY Estimated Blood Loss 15 Findings Consistent with Post-Op Diagnosis Specimens none Drains Turner Catheter (patient arrived to operating room with turner catheter intact, draining clear yellow urine) Anesthesia Type Spinal Complications none Disposition Accompanied Patient To Recovery: No Disposition: Recovery Room Overlapping Procedure I was immediately available: during the entire case.
--- NOTE | 2019-01-09 17:57 | Fluoroscopy Report ---
FL hip LT 2-3V CLINICAL HISTORY: Internal fixation. COMPARISON STUDY: Left hip radiographs January 08, 2019. FLUOROSCOPY TIME: 1 minute and 12 seconds. FLUOROSCOPIC IMAGES: 3. FINDINGS: 3 cannulated screws fixate the left femoral neck fracture. Fracture alignment is near anato kyle. The hardware is intact. There are no unexpected radiopaque foreign bodies. IMPRESSION: Expected findings following internal fixation of the left femoral neck fracture. Electronically signed by: Richardson Pena M.D. 01/09/2019 5:56 PM
[2019-01-09] MEDS ORDERED: CEFAZOLIN 2000MG 2,000 MG/15 ML SYR IV ONE (18:06)
--- NOTE | 2019-01-09 18:37 | Anesthesiology Progress Note ---
Date of Service January 09, 2019 Anesthesia Post Procedure Vital Signs Vital Signs: Temp Pulse Pulse Pulse Resp BP BP 01/09/19 18:30 82 15 116/72 01/09/19 18:20 78 16 113/69 01/09/19 18:10 81 17 119/64 01/09/19 18:04 36.9 C 79 18 108/64 01/09/19 16:06 37 C 88 16 140/83 01/09/19 15:13 36.6 C 80 16 136/77 01/09/19 07:36 36.6 C 81 16 129/73 01/09/19 00:20 36.6 C 80 18 134/76 01/09/19 00:10 36.6 C 80 18 134/76 01/08/19 23:53 86 20 126/82 01/08/19 22:47 87 18 129/90 01/08/19 20:45 36.6 C 90 18 121/73 Pulse Ox 01/09/19 18:30 95 01/09/19 18:20 96 01/09/19 18:10 100 01/09/19 18:04 98 01/09/19 16:06 93 01/09/19 15:13 92 01/09/19 07:36 92 01/09/19 00:20 92 01/09/19 00:10 92 01/08/19 23:53 94 01/08/19 22:47 94 01/08/19 20:45 96 Pain Intensity Left Hip: Pain Intensity: 0 Transfer of Care Handoff Completed per policy Notes Mental Status: alert / awake / arousable Patient Amnestic to Procedure: Yes Nausea / Vomiting: adequately controlled Pain: adequately controlled Airway Patency, RR, SpO2: stable & adequate BP & HR: stable & adequate Hydration State: stable & adequate Neuraxial Anesthesia: was administered and sensory block is resolving Anesthetic Complications: no major complications apparent
--- NOTE | 2019-01-09 18:54 | Hospitalist Progress Note ---
Date of Service January 09, 2019 Assessment & Plan (1) Closed fracture of left hip: Due to mechanical fall Xray of hip showed mildly impacted and angulated transcervical left femoral neck fracture. Ortho on board and plan for cannulated screw fixation of the left hip fracture Pt said that he is very active usually had 10k steps daily Able to walk few block and climb 2 flight of stairs with no chest discomfort and SOB He has a functional capacity with a METS greater than 4 before the fracture Stable to proceed with the orthopedic procedure Continue pain control for now PT/OT eval Incentive spirometry Hypertension BP stable Hyperlipidemia Continue statin Diabetes recent Hba1c 7 (01/08/19) Metformin on hold On insulin with sliding scale Anemia Iron studies wnl Will need outpatient scope for further eval if none in the last few years Hgb stable Will monitor H/H after procedure DVT px SCD due to procedure Disposition Will discharge once medical stable Ms. Ingrid Ferguson, contact #[phone]. Subjective Pt was seen and examined Lying in bed with no distress Pt said that pain is controlled He said that pain is worst with movement of the left leg Denies any chest pain, palpitation, dizziness and SOB Physical Exam Physical Exam: General- No acute distress Head- atraumatic Eyes- PERRL, EOMI, ENT- oropharynx clear Neck- supple, no JVD Lungs- clear to auscultation Heart- regular rhythm; no murmur Abdomen- normal bowel sounds, soft, nontender Extremities- no calf tenderness, left hip tenderness Neuro- alert, oriented x 3; PERRL, EOMI; no facial palsy; no dysarthria Skin- warm & dry Results & Data Vital Signs (Past 12 Hours) Vital Signs Temp Pulse Pulse Resp BP Pulse Ox 01/09/19 18:30 82 15 116/72 95 01/09/19 18:20 78 16 113/69 96 01/09/19 18:10 81 17 119/64 100 01/09/19 18:04 36.9 C 79 18 108/64 98 01/09/19 16:06 37 C 88 16 140/83 93 01/09/19 15:13 36.6 C 80 16 136/77 92 01/09/19 07:36 36.6 C 81 16 129/73 92 (1) Closed fracture of left hip Encounter type: initial encounter Qualified Code(s): S72.002A - Fracture of unspecified part of neck of left femur, initial encounter for closed fracture
--- NOTE | 2019-01-09 19:11 | Operative Report ---
DATE OF OPERATION: 01/09/2019 INDICATION FOR PROCEDURE: The patient is a 78-year-old male who had a fall and sustained a fracture to his left hip. The patient sustained a closed fracture to the femoral neck and left hip. He has a valgus impacted somewhat compressed fracture of the left hip which is impacted, but not displaced. He does have some mild to moderate osteoarthritis in the hip preexisting. He was not symptomatic in the hip pre-fall. PREOPERATIVE DIAGNOSES: Closed valgus impacted femoral neck fracture of the left hip with mild to moderate osteoarthritis. POSTOPERATIVE DIAGNOSES: Closed valgus impacted femoral neck fracture of the left hip with mild to moderate osteoarthritis. PROCEDURE: Open reduction internal fixation, left hip fracture using 7.3 mm Synthes cannulated screws x3. SURGEON: Wagner Guzmán MD. GENERAL LOT ATTENDANT: KIRK Valerio. ANESTHESIA: Spinal. ESTIMATED BLOOD LOSS: 15 mL. DRAINS: None. COMPLICATIONS: None. SPECIMENS: None. OPERATIVE PROCEDURE: The patient was taken to the operating room and placed under spinal anesthesia, placed supine on a fracture table. He was brought down to a perineal post. His right leg was placed into a well leg holding device, was well padded. Left leg was placed into boot traction. We did not put any significant traction on the hip at all other than just stabilize it to access the hip via fluoroscopy. C-arm was brought in. We placed him in some slight external rotation, would seemed to line the fracture of the best. It was also placed and adduction. After satisfactory AP and lateral views were obtained. Left hip was sterilely prepped and draped in usual sterile fashion. His hip was examined under fluoroscopy again, we marked the entrance point for the cannulated screws. I made a 3 cm incision over the lateral hip. Skin was incised sharply. Subcutaneous tissues were divided down to the fascia. Subcutaneous bleeders were cauterized. The fascia evelyn was divided longitudinally and the vastus lateralis muscle was divided longitudinally with electrocautery and we were able to identify the bone and placed our first guide pin in position. We placed an inverted triangle type positioning of the pins. The lowest pin was just above the cortex of the inferior neck into the lower and central head. Then we placed one anterior screw, one posterior screw in a triangular fashion with using a guide that helped make parallel screws and pin alignments to assist in the guidewire placement. We assessed AP, lateral, oblique views to assure all pins were in appropriate position within the femoral neck and head and all screw threads were repassed the femoral neck fracture into the head. The individual screws were measured. We placed 3 screws under power and a final tightening of hand held screwdriver. Cannulated wires were removed. I documented final reduction. AP and lateral views and obliques. The screws were 70, 85 and 90 mm anterior, posterior and inferior. The wound was irrigated copiously. The fascia evelyn was closed with [id number] #1 Vicryl sutures, subcutaneous tissue closed with 2-0 Vicryl sutures, skin closed with rachel. Xeroform, sterile gauze dressing and Op-Site was placed. The patient tolerated the procedure well. KIRK Valerio was my timber management assistant who assisted me during the procedure. He assisted in patient positioning on the fracture table. He assisted in the orders of postoperative care of the patient. I attest to the content of the Intraoperative Record and any orders documented therein. Any exception s are noted below.
[2019-01-09] MEDS: ACETAMINOPHEN 500 MG TAB PO SCH (19:41)
[2019-01-09 19:47] LABS: Hematocrit (blood only) 37.2 % (42-52); Hemoglobin 12.3 g/dL (14.0-18.0); Mean Corpuscular Hgb Conc 33.1 g/dL (32-36); Mean Corpuscular Volume 87.7 fL (80-100); Mean Platelet Volume 8.8 fL (7.4-10.4); Platelet Count 260 K/uL (130-400); RDW Coefficient of Variation 12.8 % (11.5-14.5); Red Blood Count 4.24 M/uL (4.7-6.1); White Blood Count 9.07 K/uL (4.8-10.8)
[2019-01-09 20:10] LABS: BUN Creatinine Ratio 13.4 (10-20); Calcium 8.3 mg/dl (8.5-10.1); Creatinine Clr Calc Pharmacy 89.1 ml/min; Est GFR (African American) 105.4; Est GFR (Non-African American) 90.9; Potassium 3.8 mmol/L (3.5-5.1)
[2019-01-09] MEDS: OXYCODONE HCL IR 5 MG TAB (IMMEDIATE RELEASE) PO PRN ×2 (20:33→21:25)
[2019-01-09] MEDS: ASPIRIN 81 MG ECTAB PO SCH (20:37)
[2019-01-09] MEDS: SIMVASTATIN 20 MG TAB PO SCH (20:37)
[2019-01-09] MEDS: SENNA 8.6 MG TAB PO SCH (20:37)
[2019-01-09] MEDS: CEFAZOLIN 1000MG 1,000 MG/7.5 ML SYR IV SCH (23:40)
[2019-01-10] MEDS: OXYCODONE HCL IR 5 MG TAB (IMMEDIATE RELEASE) PO PRN ×4 (01:54→15:43)
[2019-01-10] MEDS: ACETAMINOPHEN 500 MG TAB PO SCH ×3 (01:55→18:06)
[2019-01-10 07:01] LABS: Basophils # (auto) 0.01 K/uL (0-0.2); Basophils % (auto) 0.2 %; Eosinophils # (auto) 0.76 K/uL (0-0.5); Eosinophils % (auto) 12.1 %; Hematocrit (blood only) 36.4 % (42-52); Immature Granulocytes # (auto) 0.01 K/uL (0.00-0.02); Immature Granulocytes % (auto) 0.2 %; Lymphocytes # (auto) 0.91 K/uL (1.2-3.4); Lymphocytes % (auto) 14.4 %; Mean Corpuscular Volume 87.9 fL (80-100); Mean Platelet Volume 8.8 fL (7.4-10.4); Monocytes # (auto) 0.55 K/uL (0.11-0.59); Monocytes % (auto) 8.7 %; Neutrophils # (auto) 4.06 K/uL (1.4-6.5); Neutrophils % (auto) 64.4 %; Platelet Count 248 K/uL (130-400); RDW Coefficient of Variation 12.9 % (11.5-14.5); RDW Standard Deviation 41.3 fL (36.4-46.3); Red Blood Count 4.14 M/uL (4.7-6.1)
[2019-01-10 07:33] LABS: BUN Creatinine Ratio 14.8 (10-20); Calcium 8.3 mg/dl (8.5-10.1); Creatinine Clr Calc Pharmacy 85.4 ml/min; Est GFR (African American) 103.6; Est GFR (Non-African American) 89.3; Potassium 4.1 mmol/L (3.5-5.1)
--- NOTE | 2019-01-10 07:40 | Anesthesiology Progress Note ---
Date of Service January 10, 2019 Anesthesia Post Procedure Vital Signs Vital Signs: Temp Pulse Pulse Pulse Resp BP Pulse Ox 01/10/19 07:10 36.4 C L 77 16 144/79 H 97 01/10/19 02:55 36.5 C 82 18 125/68 92 01/09/19 23:35 36.4 C L 80 18 113/68 96 01/09/19 22:00 36.6 C 84 16 119/55 L 97 01/09/19 20:47 82 16 132/76 96 01/09/19 19:44 90 16 128/73 96 01/09/19 19:12 36.4 C L 90 16 148/72 H 95 01/09/19 18:52 36.4 C L 82 18 124/76 95 01/09/19 18:30 36.4 C L 82 15 116/72 95 01/09/19 18:20 78 16 113/69 96 01/09/19 18:10 81 17 119/64 100 01/09/19 18:04 36.9 C 79 18 108/64 98 01/09/19 16:06 37 C 88 16 140/83 93 01/09/19 15:13 36.6 C 80 16 136/77 92 Pain Intensity Left Hip: Pain Intensity: 0 Notes Mental Status: alert / awake / arousable and participated in evaluation Patient Amnestic to Procedure: Yes Nausea / Vomiting: adequately controlled Pain: adequately controlled Airway Patency, RR, SpO2: stable & adequate BP & HR: stable & adequate Hydration State: stable & adequate Neuraxial Anesthesia: was administered and sensory block resolved Anesthetic Complications: no major complications apparent and Pt Satisfied with anesthetic care
--- NOTE | 2019-01-10 07:55 | Orthopedic Progress Note ---
Date of Service January 10, 2019 Assessment & Plan (1) Closed fracture of left hip: POD 1 s/p ORIF Left Hip Fx with 7.3 Cannulated screws PT/OT protocol. TTWB DVT prophylaxis - ASA bid, SCD's Pain manangement - Oxycodone, IV Morphine DC planning - will see how pt progresses with PT. Discussed services prior to surgery. Subjective POD 1 s/p ORIF Left Hip Fx Pt awake, alert. No complaints. Pain controlled. Discussed plan for here in the hospital and post op follow up plans. Overall, feeling well. Physical Exam Physical Exam: Dressings C/D/I. Mild swelling around the surgical site. No erythema. Calves, soft,NT. NV intact. Toes mobile. Results & Data Vital Signs (Past 12 Hours) Vital Signs Temp Pulse Resp BP Pulse Ox 01/10/19 07:10 36.4 C L 77 16 144/79 H 97 01/10/19 02:55 36.5 C 82 18 125/68 92 01/09/19 23:35 36.4 C L 80 18 113/68 96 01/09/19 22:00 36.6 C 84 16 119/55 L 97 01/09/19 20:47 82 16 132/76 96 Laboratory Results 01/10/19 01/10/19 01/09/19 Range/Units 06:46 06:46 20:36 WBC 6.30 (4.8-10.8) K/uL RBC 4.14 L (4.7-6.1) M/uL Hgb 12.0 L (14.0-18.0) g/dL Hct 36.4 L (42-52) % MCV 87.9 (80-100) fL MCH 29.0 (25-34) pg MCHC 33.0 (32-36) g/dL RDW Std Deviation 41.3 (36.4-46.3) fL RDW Coeff of Kailyn 12.9 (11.5-14.5) % Plt Count 248 (130-400) K/uL MPV 8.8 (7.4-10.4) fL Immature Gran % (Auto) 0.2 % Neut % (Auto) 64.4 % Lymph % (Auto) 14.4 % [place] % (Auto) 8.7 % Eos % (Auto) 12.1 % Baso % (Auto) 0.2 % Immature Gran # (Auto) 0.01 (0.00-0.02) K/uL Neut # (Auto) 4.06 (1.4-6.5) K/uL Lymph # (Auto) 0.91 L (1.2-3.4) K/uL [place] # (Auto) 0.55 (0.11-0.59) K/uL Eos # (Auto) 0.76 H (0-0.5) K/uL Baso # (Auto) 0.01 (0-0.2) K/uL Sodium 133 L (136-145) mmol/L Potassium 4.1 (3.5-5.1) mmol/L Chloride 98 (98-107) mmol/L Carbon Dioxide 27 (21-32) mmol/L Anion Gap 8.0 (3-11) BUN 11 (7-18) mg/dl Creatinine 0.72 (0.6-1.4) mg/dl Est Cr Clr Drug Dosing 85.4 ml/min Est GFR ( Amer) 103.6 Est GFR (Non-Af Amer) 89.3 BUN/Creatinine Ratio 14.8 (10-20) Glucose 91 (70-99) mg/dl POC Glucose 155 H (70-99) Calcium 8.3 L (8.5-10.1) mg/dl 01/09/19 01/09/19 01/09/19 Range/Units 19:26 19:26 19:05 WBC 9.07 (4.8-10.8) K/uL RBC 4.24 L (4.7-6.1) M/uL Hgb 12.3 L (14.0-18.0) g/dL Hct 37.2 L (42-52) % MCV 87.7 (80-100) fL MCH 29.0 (25-34) pg MCHC 33.1 (32-36) g/dL RDW Std Deviation 41.0 (36.4-46.3) fL RDW Coeff of Kailyn 12.8 (11.5-14.5) % Plt Count 260 (130-400) K/uL MPV 8.8 (7.4-10.4) fL Immature Gran % (Auto) % Neut % (Auto) % Lymph % (Auto) % [place] % (Auto) % Eos % (Auto) % Baso % (Auto) % Immature Gran # (Auto) (0.00-0.02) K/uL Neut # (Auto) (1.4-6.5) K/uL Lymph # (Auto) (1.2-3.4) K/uL [place] # (Auto) (0.11-0.59) K/uL Eos # (Auto) (0-0.5) K/uL Baso # (Auto) (0-0.2) K/uL Sodium 133 L (136-145) mmol/L Potassium 3.8 (3.5-5.1) mmol/L Chloride 100 (98-107) mmol/L Carbon Dioxide 26 (21-32) mmol/L Anion Gap 7.0 (3-11) BUN 9 (7-18) mg/dl Creatinine 0.69 (0.6-1.4) mg/dl Est Cr Clr Drug Dosing 89.1 ml/min Est GFR ( Amer) 105.4 Est GFR (Non-Af Amer) 90.9 BUN/Creatinine Ratio 13.4 (10-20) Glucose 107 H (70-99) mg/dl POC Glucose 98 (70-99) Calcium 8.3 L (8.5-10.1) mg/dl 01/09/19 01/09/19 Range/Units 18:07 12:10 WBC (4.8-10.8) K/uL RBC (4.7-6.1) M/uL Hgb (14.0-18.0) g/dL Hct (42-52) % MCV (80-100) fL MCH (25-34) pg MCHC (32-36) g/dL RDW Std Deviation (36.4-46.3) fL RDW Coeff of Kailyn (11.5-14.5) % Plt Count (130-400) K/uL MPV (7.4-10.4) fL Immature Gran % (Auto) % Neut % (Auto) % Lymph % (Auto) % [place] % (Auto) % Eos % (Auto) % Baso % (Auto) % Immature Gran # (Auto) (0.00-0.02) K/uL Neut # (Auto) (1.4-6.5) K/uL Lymph # (Auto) (1.2-3.4) K/uL [place] # (Auto) (0.11-0.59) K/uL Eos # (Auto) (0-0.5) K/uL Baso # (Auto) (0-0.2) K/uL Sodium (136-145) mmol/L Potassium (3.5-5.1) mmol/L Chloride (98-107) mmol/L Carbon Dioxide (21-32) mmol/L Anion Gap (3-11) BUN (7-18) mg/dl Creatinine (0.6-1.4) mg/dl Est Cr Clr Drug Dosing ml/min Est GFR ( Amer) Est GFR (Non-Af Amer) BUN/Creatinine Ratio (10-20) Glucose (70-99) mg/dl POC Glucose 90 120 H (70-99) Calcium (8.5-10.1) mg/dl Diagnostic Findings Patient: TOYIN OLEA Date: 01/08/19 MR#: [id number]: [address] [facility] Acct ID:[id number]: [facility] Zip[facility] [place] [address] Age: 78Location: 3W Sex: M Room/Bed: [facility] Att Phy: Jenelle Lock M.D.Diagnosis: L HIP FRACTURE Kimberly Phy: Priya Cazares DOService Date: 01/09/19 Fam Phy:Interpreting Phy: Richardson Pena MD Admit Phy: Valente Richmond MD Ordering Phy: Wagner Guzmán M.D. cc: ~ FL hip LT 2-3V CLINICAL HISTORY: Internal fixation. COMPARISON STUDY: Left hip radiographs January 08, 2019. FLUOROSCOPY TIME: 1 minute and 12 seconds. FLUOROSCOPIC IMAGES: 3. FINDINGS: 3 cannulated screws fixate the left femoral neck fracture. Fracture alignment is near anatomic. The hardware is intact. There are no unexpected radiopaque foreign bodies. IMPRESSION: Expected findings following internal fixation of the left femoral neck fracture. Electronically signed by: Richardson Pnea M.D. 01/09/2019 5:56 PM (1) Closed fracture of left hip Encounter type: initial encounter Qualified Code(s): S72.002A - Fracture of unspecified part of neck of left femur, initial encounter for closed fracture
[2019-01-10] MEDS: ASPIRIN 81 MG ECTAB PO SCH ×2 (09:03→21:17)
[2019-01-10] MEDS: FLUTICASONE PROPIONATE NA SPR 16 GM BTL NAE SCH (09:04)
[2019-01-10] MEDS: INSULIN ASPART 100 UNITS/ML 3 ML PEN SC SCH ×4 (11:16→21:11)
[2019-01-10] MEDS: CEFAZOLIN 1000MG 1,000 MG/7.5 ML SYR IV SCH (12:35)
--- NOTE | 2019-01-10 17:35 | Hospitalist Progress Note ---
Date of Service January 10, 2019 Assessment & Plan (1) Closed fracture of left hip: Due to mechanical fall Xray of hip showed mildly impacted and angulated transcervical left femoral neck fracture. S/P day 1 Cannulated Screw Open Reduction Internal Fixation Left Femoral Neck Fracture by Dr. Guzmán Continue pain control PT/OT eval Incentive spirometry Fall precaution Monitor H/H Hypertension BP stable Hyperlipidemia Continue statin Diabetes recent Hba1c 7 (01/08/19) Metformin on hold On insulin with sliding scale Anemia Iron studies wnl Will need outpatient scope for further eval if none in the last few years Hgb stable Continue monitor H/H DVT px SCD ASA BID as per ortho Disposition Will discharge once medical stable waiting for placement to rehab Ms. Ingrid Ferguson, contact #[phone]. Subjective Pt was seen and examined Sitting in chair with no distress with at bedside Pt said that his pain is controlled He said that he slept well last night Denies any chest pain, palpitation, dizziness and SOB Physical Exam Physical Exam: General- No acute distress Head- atraumatic Eyes- PERRL, EOMI, ENT- oropharynx clear Neck- supple, no JVD Lungs- clear to auscultation Heart- regular rhythm; no murmur Abdomen- normal bowel sounds, soft, nontender Extremities- no calf tenderness, left hip tenderness Neuro- alert, oriented x 3; PERRL, EOMI; no facial palsy; no dysarthria Skin- warm & dry Results & Data Vital Signs (Past 12 Hours) Vital Signs Temp Pulse Resp BP Pulse Ox 01/10/19 15:07 36.7 C 85 18 112/66 93 01/10/19 07:10 36.4 C L 77 16 144/79 H 97 (1) Closed fracture of left hip Encounter type: initial encounter Qualified Code(s): S72.002A - Fracture of u nspecified part of neck of left femur, initial encounter for closed fracture
[2019-01-10] MEDS: SIMVASTATIN 20 MG TAB PO SCH (21:17)
[2019-01-10] MEDS: SENNA 8.6 MG TAB PO SCH (21:17)
[2019-01-11] MEDS: OXYCODONE HCL IR 5 MG TAB (IMMEDIATE RELEASE) PO PRN (01:12)
[2019-01-11] MEDS: ACETAMINOPHEN 500 MG TAB PO SCH ×2 (01:12→09:31)
[2019-01-11] MEDS: FLUTICASONE PROPIONATE NA SPR 16 GM BTL NAE SCH (07:50)
[2019-01-11] MEDS: ASPIRIN 81 MG ECTAB PO SCH (07:51)
--- NOTE | 2019-01-11 08:03 | Orthopedic Progress Note ---
Date of Service January 11, 2019 Assessment & Plan (1) Closed fracture of left hip: POD 2 s/p ORIF Left Hip Fx with 7.3 Cannulated screws PT/OT protocol. TTWB w walker DVT prophylaxis - ASA bid, SCD's Pain manangement - Oxycodone, IV Morphine DC planning - Patient states [facility] today. Will need F/U w Dr. Guzmán's office 10-12 days post op, January [address] Guzmán's nurse, call [phone] for appt. Subjective POD #2 Pt was seen and examined Pt said that his pain is controlled Denies any chest pain, palpitation, dizziness and SOB, N/V. States he is being transported to [facility] today possibly. Physical Exam Physical Exam: Left hip dressing c/d/i, no drainage, no erythema. Toes/ ankle mobile. No calf tenderness. A&Ox3 Results & Data Vital Signs (Past 12 Hours) Vital Signs Temp Pulse Resp BP Pulse Ox 01/11/19 07:06 36.3 C L 82 16 124/70 93 01/10/19 22:59 36.7 C 81 16 133/76 93 (1) Closed fracture of left hip Encounter type: initial encounter Qualified Code(s): S72.002A - Fracture of unspecified part of neck of left femur, initial encounter for closed fracture
[2019-01-11] MEDS: INSULIN ASPART 100 UNITS/ML 3 ML PEN SC SCH (08:52)
--- NOTE | 2019-01-11 10:33 | Hospitalist Progress Note ---
Date of Service January 11, 2019 Assessment & Plan (1) Closed fracture of left hip: Due to mechanical fall Xray of hip showed mildly impacted and angulated transcervical left femoral neck fracture. S/P day 2 Cannulated Screw Open Reduction Internal Fixation Left Femoral Neck Fracture by Dr. Guzmán Continue pain control PT/OT eval Incentive spirometry Fall precaution Hemoglobin stable Hypertension BP stable Hyperlipidemia Continue statin Diabetes recent Hba1c 7 (01/08/19) Will resume Metformin on discharge On insulin with sliding scale during hospital course Anemia Iron studies wnl Will need outpatient FOBT and scope for further eval Stools sample did not collected (Forgot to give it) Continue monitor CBC outpatient DVT px SCD ASA BID as per ortho Disposition Discharge home rehab today Follow up with ortho Dr. Guzmán Follow up with your PCP once discharge from rehab Subjective Pt was seen and examined. Lying in bed with no distress Pt said that pain is controlled. Pt said that he feels fine He said that he had 2 bowel movement yesterday and forgot to give a sample Denies any chest pain, palpitation, dizziness and SOB Physical Exam Physical Exam: General- No acute distress Head- atraumatic Eyes- PERRL, EOMI, ENT- oropharynx clear Neck- supple, no JVD Lungs- clear to auscultation Heart- regular rhythm; no murmur Abdomen- normal bowel sounds, soft, nontender Extremities- no calf tenderness, left hip tenderness Neuro- alert, oriented x 3; PERRL, EOMI; no facial palsy; no dysarthria Skin- warm & dry Results & Data Vital Signs (Past 12 Hours) Vital Signs Temp Pulse Pulse Resp BP Pulse Ox 01/11/19 10:24 36.3 C L 82 82 16 124/70 93 01/11/19 07:06 36.3 C L 82 16 124/70 93 01/10/19 22:59 36.7 C 81 16 133/76 93 (1) Closed fracture of left hip Encounter type: initial encounter Qualified Code(s): S72.002A - Fracture of unspecified part of neck of left femur, initial encounter for closed fracture
--- NOTE | 2019-01-11 11:17 | Discharge Summary ---
Date of Service January 11, 2019 Admission HPI Per Admitting Provider History obtained from patient, family, and records. Medical history significant for hypertension, hyperlipidemia, history diverticulosis, colonic polyps, DM 2 on oral medications. Patient is a current resident of [place], [place] who is currently in [place] for the football season. Patient was crossing the road around lunchtime today when he got distracted subsequently tripping over a curb and landing on his left side. Had trouble getting up. No head trauma, no chest pain, no S OB, no LOC. Refused ER consultation due to a lunch time business meeting. Persistent left-sided hip pain at the restaurant and at home. Medical History as above Surgical History : Cholecystectomy, cataract surgery, hernia repair, laser trabeculoplasty, no surgery, knee surgery Family History : Heart disease Personal/Social history : Non-smoker, occasional EtOH intake, retired [employer] Baseline Functionality : able to do at least 8000 steps a day at home without rest/exertional chest pain, S OB prior to injury Admission Exam Per Admitting Provider GENERAL: Comfortable, pleasant, no respiratory distress SKIN: Pallor , warm HEENT: pale palpebral conjunctivae, no ptosis, dry buccal mucosa NECK : Supple, no tenderness CHEST : CTA, no tenderness HEART : RRR, no obvious murmurs ABDOMEN: Soft, nontender EXTREMITIES : Left hip tenderness, no LE swelling NEUROLOGIC : Coherent, no facial asymmetry, no other gross focality Principal Diagnosis Closed fracture of left hip Hyperlipidemia Anemia Diabetes Hypertension Discharge Exam General- No acute distress Head- atraumatic Eyes- PERRL, EOMI, ENT- oropharynx clear Neck- supple, no JVD Lungs- clear to auscultation Heart- regular rhythm; no murmur Abdomen- normal bowel sounds, soft, nontender Extremities- no calf tenderness, left hip tenderness Neuro- alert, oriented x 3; PERRL, EOMI; no facial palsy; no dysarthria Skin- warm & dry Discharge Data Allergies Allergy/AdvReac Type Severity Reaction Status Date / Time Penicillins Allergy Intermediate joints Verified 01/09/19 00:00 swell/redness Sulfa (Sulfonamide Allergy Unknown Unknown Verified 01/09/19 00:00 Antibiotics) Consultations 01/08/19 22:24 ED Decision to Admit Stat 01/09/19 00:47 Consult Case Management - Discharge Planning Routine Consult Orthopedic Surgery Routine Procedures Performed Operation Date: 01/09/19 07:00 Actual Procedures p Cannulated Screw Open Reduction Internal Fixation Left Femoral Neck Fracture(Left) - Wagner Guzmán MD Ordered Studies 01/09/19 15:51 FL hip LT 2-3V Routine 01/09/19 15:52 FL fluoroscopy <1hr Routine FL hip LT 2-3V CLINICAL HISTORY: Internal fixation. COMPARISON STUDY: Left hip radiographs January 08, 2019. FLUOROSCOPY TIME: 1 minute and 12 seconds. FLUOROSCOPIC IMAGES: 3. FINDINGS: 3 cannulated screws fixate the left femoral neck fracture. Fracture alignment is near anatomic. The hardware is intact. There are no unexpected radiopaque foreign bodies. IMPRESSION: Expected findings following internal fixation of the left femoral neck fracture. Electronically signed by: Richardson Pena M.D. 01/09/2019 5:56 PM Dictated: 01/09/191754 Transcribed: 01/09/191754 XR chest 1V portable HISTORY: Hip fracture. COMPARISON: None. FINDINGS: Small left basilar linear densities favor subsegmental atelectasis or scarring. Otherwise, the lungs are clear. Small nodular density at the right lung base favors a nipple shadow. The heart is normal in size. No pleural e ffusions. No pneumothorax. IMPRESSION: No acute process. Electronically signed by: Elias Lo M.D. 01/09/2019 7:13 AM Dictated: 01/09/19711 Transcribed: 01/09/19711 XR hip LT 2V w pelvis CLINICAL HISTORY: 78 years-old Male presenting with fall, left hip pain. TECHNIQUE: Frontal view of the pelvis and frontal and frog-leg lateral views of the left hip were obtained. COMPARISON: None. FINDINGS: Nondisplaced transcervical fracture of the left femoral neck. There is mild impaction predominantly at the superior margin. There is mild valgus angulation. The left femoral head remains congruent in the acetabulum. Moderate degenerative changes of the left hip including suspected joint space loss as well as osteophytosis. A lesser degree of degenerative change in the right hip. Bony pelvis intact. Arcuate lines of the sacrum intact. Mild degenerative changes in the lower lumbar spine. Coil rachel project over the central and left abdomen indicative of prior hernia repair. Additional coil stable projects in the parasymphyseal region. Surgical clip noted in the right lower quadrant with a moderate stool burden. IMPRESSION: 1. Mildly impacted and angulated transcervical left femoral neck fracture. 2. Moderate left hip degenerative change. Electronically signed by: Champ Aceves M.D. 01/08/2019 11:10 PM Dictated: 01/08/192308 Transcribed: 01/08/192308 Hospital Course (1) Closed fracture of left hip: Due to mechanical fall Xray of hip showed mildly impacted and angulated transcervical left femoral neck fracture. S/P day 2 Cannulated Screw Open Reduction Internal Fixation Left Femoral Neck Fracture by Dr. Guzmán Continue pain control PT/OT eval Incentive spirometry Fall precaution Hemoglobin stable Hypertension BP stable Hyperlipidemia Continue statin Diabetes recent Hba1c 7 (01/08/19) Will resume Metformin on discharge On insulin with sliding scale during hospital course Anemia Iron studies wnl Will need outpatient FOBT and scope for further eval Stools sample did not collected (Forgot to give it) Continue monitor CBC outpatient DVT px SCD ASA BID as per ortho Disposition Discharge home rehab today Follow up with ortho Dr. Guzmán Follow up with your PCP once discharge from rehab Total Time Total Time Spent Total Time Spent (In Minutes): 35 minutes Total Time Includes: Examination of the Patient, Discharge Planning, Medication Reconciliation, Communication With Other Providers and Other Discharge Plan Discharge Items Patient Disposition: Transfer Inpatient Rehab Fac Reason For Visit: L HIP FRACTURE Discharge Diagnosis: Closed fracture of left hip Hyperlipidemia Anemia Diabetes Hypertension Activity: As commented below Weightbearing: Left toe touch Weightbearing Comment: with walker or crutches Non-emergency contact: Primary Care Provider and Surgeon Call non-emergency contact if: your pain is not controlled, your temperature is above 101.5, your wound has increased redness and your wound has increased drainage Follow-up/Referrals: Priya Cazares DO [Primary Care Provider] - Diet: Carb Consistent or DM2 Addtl Attending Provider Instructions: Follow up with your primary care provider once discharge from rehab Follow up with orthopedic Dr. Guzmán between 7 to 10 days ( Please call [phone] to schedule for the appointment) Continue physical and occupation therapy Fall precaution Your physician will evaluate you for the anemia as an outpatient ( fecal occult test, scope) Your physician will monitor your hemoglobin for the anemia Monitor for any abnormal bleeding while taking aspirin twice a day (seek medical attention if you develop any abnormal bleeding) Do not drive or operate any machine after taking the oxycodone Please hold the next dose of oxycodone if you develop any lethargy and drowsiness Addtl Fur Blender Provider Instructions: [facility] DISCHARGE INSTRUCTIONS: HIP FRACTURE SELF CARE INSTRUCTIONS: A. You are to ambulate with a walker or crutches for approximately 6 weeks. B. You are TOE TOUCH WEIGHT BEARING on your operative lower extremity for at least 6 weeks. Use a walker/crutches for now for ambulation until told otherwise. C. Wear low heeled shoes with non-slip soles D. Be sure that your floors are free of things that could trip you throw rugs, electrical cords, and small objects. Avoid wet and waxed floors, especially with crutches/walker/cane. E. Try to walk several times a day with rest periods between. F. You may shower 48 hours after surgery and get the incision area wet, but DO NOT soak or submerge incision area in water. (No baths, swimming pools, hot tubs) G. You may have a large, band-aid like dressing over your incision (Aquacel). This will remain on your incision for 7 days, and then can be removed. You CAN shower with this on. If incision is leaking through the dressing, please call the office . H. Do NOT apply soap or any ointment/lotions directly over incision. I. You may use ice as needed to operative site. SPECIAL CARE INSTRUCTIONS: VERY IMPORTANT TO READ AND REVIEW A. You may be at risk for phlebitis or blood clots. a. Wear surgical stockings (EDGAR hose) for 2 weeks after surgery to improve circulation and reduce swelling. b. Take ASPIRIN 81mg BID for 4 weeks or as directed. This is your blood thinner. c. If you are on Coumadin- you will have daily/weekly blood work to monitor your levels. This will be done by either your family physician/ribbon lap machine tender (if you are on Coumadin chronically) versus your orthopedic surgeon. Expect a phone call the day of or the day after your blood work is drawn to adjust your dose accordingly. B. There are a few signs you need to watch for after you are home. Call [facility] [place] at [phone] if you experience any of the following: a. If you have a temperature of 101 degrees or higher. b. Sudden increase in pain in your hip not relieved by rest or pain medication. c. Any fluid or drainage from the incision; redness of the incision. d. Shortness of breath or chest pain. C. Call your physician if: a. Temperature is greater than 101 degrees (F). b. Pain is not relieved by prescribed pain medications. c. Increase drainage or redness from incision. d. Unanswered questions or concerns. D. Pain Medication: a. You will be prescribed pain medication upon discharge that should last till your first post-operative appointment. b. If you experience nausea and/or skin rash, discontinue this medication and contact our office for an alternative medication. c. Caution- narcotic pain medication can cause constipation. FOLLOW UP VISIT: Please call [facility] [place] at [phone] to schedule a follow up appointment 10-14 days from the date of your surgery date. Pending Studies at Discharge: No Stand-Alone Forms: My [facility] Skilled Items Patient informed of condition?: Yes DNR: No Discharge Level of Care: Acute rehab Communicable Disease: No Discharge Prognosis: Stable Lines: None Urinary Catheter: No Medications and DC Order Prescriptions: New acetaminophen [Tylenol Extra Strength] 500 mg Tablet 1,000 mg PO Q8H PRN (Reason: pain) Qty: 15 RF: 0 oxycodone 5 mg Tablet 5 mg PO Q8H PRN (Reason: severe pain ) Qty: 10 RF: 0 sennosides [Senokot] 8.6 mg Tablet 17.2 mg PO HS PRN (Reason: contipation) Qty: 30 RF: 0 Continued metformin 1,000 mg Tablet 1,000 mg PO BID RF: 0 fluticasone propionate [Flonase Allergy Relief] 50 mcg/actuation [place],Suspension 2 spray INTRANASAL DAILY RF: 0 simvastatin 20 mg Tablet 20 mg PO PM RF: 0 Changed aspirin 81 mg Tablet,Chewable 81 mg PO BID Qty: 60 RF: 0 Discharge Orders: Discharge Order (Routine); Ordered 01/11/19 Ordered By: Jenelle Lock Admission Data Admit Date/Time: 01/08/19 23:36 Attending Provider: Jenelle Lock Admit Provider: Valente Richmond Primary Care Provider: Angermann,Priya Other Providers: Valente Richmond ; Wagner Guzmán ; [facility] Other Interventions: Discharge Summary Assessment (RN) Last Done: 01/11/19 10:24
== END 2019-01-11 12:09 | DRG 482 ==
LOC: ED 20:37 → 3W 23:36

== ENCOUNTER 2019-01-30 14:01 | Inpatient (IN) ==
--- NOTE | 2019-01-30 14:58 | XRay Report ---
XR elbow LT min 3V routine CLINICAL HISTORY: Left elbow pain following fall 2 weeks ago. Left elbow surgery in October 2018. COMPARISON: None FINDINGS: Alignment of the left elbow is anatomic. No acute fracture is identified. There is a possi ble left elbow joint effusion. Marked soft tissue swelling overlying olecranon and posterior distal l eft humerus is identified. Note is also made of cortical irregularity of the posterior aspect of the olecranon and the distal left humerus. IMPRESSION: 1. Marked soft tissue swelling overlying the olecranon and posterior distal left humerus. Differentia l diagnosis include olecranon bursitis, cellulitis and contusion. 2. Possible left elbow joint effusion. No fracture identified. 3. Irregularity of the posterior cortex of the left olecranon and distal left humerus. This is age in determinate but raises the possibility of osteomyelitis. Electronically signed by: Richardson Pena M.D. 01/30/2019 2:57 PM
[2019-01-30 15:39] LABS: Basophils # (auto) 0.01 K/uL (0-0.2); Basophils % (auto) 0.1 %; Eosinophils # (auto) 0.41 K/uL (0-0.5); Hematocrit (blood only) 35.6 % (42-52); Hemoglobin 11.6 g/dL (14.0-18.0); Immature Granulocytes # (auto) 0.01 K/uL (0.00-0.02); Immature Granulocytes % (auto) 0.1 %; Lymphocytes # (auto) 0.92 K/uL (1.2-3.4); Lymphocytes % (auto) 13.5 %; Mean Corpuscular Hemoglobin 28.8 pg (25-34); Mean Corpuscular Hgb Conc 32.6 g/dL (32-36); Mean Corpuscular Volume 88.3 fL (80-100); Mean Platelet Volume 8.5 fL (7.4-10.4); Monocytes # (auto) 0.77 K/uL (0.11-0.59); Monocytes % (auto) 11.3 %; Neutrophils # (auto) 4.71 K/uL (1.4-6.5); Platelet Count 352 K/uL (130-400); RDW Standard Deviation 41.9 fL (36.4-46.3); Red Blood Count 4.03 M/uL (4.7-6.1); White Blood Count 6.83 K/uL (4.8-10.8)
[2019-01-30 16:03] LABS: BUN Creatinine Ratio 15.4 (10-20); Blood Urea Nitrogen 13 mg/dl (7-18); C Reactive Protein 8.66 mg/dl (0-0.29); Calcium 8.9 mg/dl (8.5-10.1); Carbon Dioxide 28 mmol/L (21-32); Chloride 96 mmol/L (98-107); Est GFR (African American) 97.2; Est GFR (Non-African American) 83.9; Glucose 107 mg/dl (70-99); Potassium 4.4 mmol/L (3.5-5.1); Sodium 131 mmol/L (136-145)
[2019-01-30] MEDS ORDERED: VANCOMYCIN CONSULT ACTIVE PRN ×2 (17:06→19:25)
[2019-01-30] MEDS ORDERED: VANCOMYCIN HCL 1,500 MG in SODIUM CHLORIDE 0.9% 500 ML IV ONE (17:06)
--- NOTE | 2019-01-30 18:02 | History & Physical Report ---
Date of Service January 30, 2019 Assessment & Plan (1) Olecranon bursitis of left elbow: Recurrent left olecranon bursitis. Does not appear to be septic. Received IV vancomycin in ED which will be continued. X-ray of left elbow showed irregularity of the posterior cortex of the left olecranon and distal left humerus raising the possibility of osteomyelitis. Check MRI. Consult Orthopedics- case discussed with orthopedic surgeon on-call. NPO after midnight in case surgical intervention is recommended. (2) Diabetes mellitus type 2, controlled: Diabetes mellitus type 2 well-controlled on metformin. Hemoglobin A1c was 7.0 on 01/08/2019. Random blood sugar today 107. Hold metformin during hospital stay. Monitor BSG's. Patient prefers not to initiate insulin therapy unless blood sugars become significantly elevated. (3) Status post fracture of left hip: Recovering from repair of left hip fracture about 3 weeks ago. Continue PT. Ambulate with walker and 50% weightbearing left lower extremity. (4) MRSA (methicillin resistant Staphylococcus aureus) carrier: Nasal MRSA swab obtained after admission was positive. Contact precautions ordered. (5) DVT prophylaxis: Has been taking aspirin 81 mg BID postoperatively for his recent hip fracture. Continue same. Ambulate as able. (6) Discharge planning issues: Anticipated discharge to home. Medical follow-up with his primary care provider in [place]. Follow-up with Dr. Roy at [facility] for any problems during football season. History of Present Illness Chief Complaint: left elbow pain Primary Care Provider: Dr. Yennifer Cazares, [place], [place] 78-year-old gentleman previously from the [place] area. Now lives in [place], but spends football season in [place] every year. History of diabetes mellitus type 2 well-controlled on metformin and dyslipidemia. In October of this year he developed pain and swelling of his left elbow. He was diagnosed with a left olecranon bursitis. Treated with antibiotics without improvement. Eventually, a bursectomy was performed. To the patient's knowledge, there were never any positive fluid/wound cultures. Admitted to [facility] on 01/08/2019 with a left hip fracture secondary to mechanical fall. When he fell, he had some abrasions of his left elbow and right hand. Repair of hip fracture performed by Dr. Guzmán and he went to [facility] for skilled care. Now permitted 50% weightbearing on the left lower extremity and using a walker. 2 days ago he noticed some swelling of his left elbow. Over the past 1 to 2 days the swelling has become significantly worse. Erythema noted, but no significant warmth. No fever or chills. Taking acetaminophen and naproxen without much benefit. Allergies Allergy/AdvReac Type Severity Reaction Status Date / Time Penicillins Allergy Intermediate joints Verified 01/30/19 15:42 swell/redness Sulfa (Sulfonamide Allergy Unknown Unknown Verified 01/30/19 15:42 Antibiotics) Home Medications Home Medications Medication Instructions Recorded Confirmed Type fluticasone propionate [Flonase 2 spray INTRANASAL DAILY 01/09/19 01/30/19 History Allergy Relief] metformin 1,000 mg PO BID 01/09/19 01/30/19 History aspirin 81 mg PO BID #60 tab 01/11/19 01/30/19 Rx acetaminophen [Tylenol Arthritis 1,300 mg PO HS 01/30/19 01/30/19 History Pain] naproxen sodium [Aleve] 220 mg PO AMPM 01/30/19 01/30/19 History polyethylene glycol 3350 [Miralax] 17 g PO QAM 01/30/19 01/30/19 History ranitidine HCl 150 mg PO DAILY 01/30/19 01/30/19 History simvastatin 20 mg PO PM 01/30/19 01/30/19 History Past Med/Surg History Medical History 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) Status post fracture of left hip (Chronic) Dyslipidemia (Chronic) Diabetes mellitus type 2, controlled (Chronic) Surgical History History of elbow surgery (Chronic) History of total bilateral knee replacement Family History Mother Heart disease Father Coronary heart disease Social History Preferred Language: Italian Communication Ability: Effective Accounting/Finance Tutor Required: No Beliefs That Will Affect Care: None marital status: Current Living Situation: Spouse Other Information That Helps Us Care for You: No Feels Safe at Home: Yes Safety Concerns: Feels Safe At This Time Smoking Status: Never smoker Hx Alcohol Use: No Hx Substance Use: No Review of Systems Constitutional: no fever and no weight loss Eyes: no diplopia and no worsening vision Ear, Nose, Mouth, Throat: + nasal congestion; no sinus pain/pressure and no so re throat Respiratory: + cough (mild attributed to sinus drainage); no dyspnea Cardiovascular: no chest pain, no palpitations and no edema Gastrointestinal: no nausea, no vomiting, no constipation, no diarrhea/loose stools, no blood in stools and no melena Genitourinary: + nocturia; no dysuria and no hematuria Musculoskeletal: as per Subjective / HPI and + joint pain Integumentary: no rash and no new lesions Neurologic: no headache(s) no diabetic neuropathy Endocrine: no polydipsia and no polyuria blood sugars well controlled Hematologic / Lymphatic: + easy bruising; no easy bleeding and no lymphadenopathy Physical Exam Constitutional: WD/WN, vitals as above no acute distress Eyes: PERRL, conjunctivae normal, anicteric sclerae ENMT: external ear and nose normal, oropharynx normal Neck: trachea midline, no thyromegaly Respiratory: normal respiratory effort, lungs clear to auscultation Cardiovascular: Rate/Rhythm: regular rate Heart Sounds: no gallop, no murmur and no cardiac rub Vessels: no JVD Extremities: normal capillary refill; no calf tenderness and no edema Gastrointestinal (Abdomen): normal bowel sounds, soft, nontender, no hepatosplenomegaly Musculoskeletal: Head/Neck/Chest: neck supple Extremities: strength 5/5 throughout; no cyanosis and no clubbing erythema and swelling left elbow Skin: no rashes, warm and dry Neurologic: PERRL, EOMI no facial palsy no dysarthria or aphasia Psychiatric: Orientation: alert and oriented x 3 Affect: euthymic affect Lymphatic: no cervical lymphadenopathy Results & Data Vital Signs (Past 12 Hours) Vital Signs Pulse Pulse Resp BP BP Pulse Ox 01/30/19 18:00 90 16 130/82 96 01/30/19 16:00 87 18 123/66 98 01/30/19 14:07 93 H 20 127/77 96 Laboratory Results Laboratory Results - last 24 hr 01/30/19 01/30/19 01/30/19 15:22 15:22 15:22 WBC 6.83 RBC 4.03 L Hgb 11.6 L Hct 35.6 L MCV 88.3 MCH 28.8 MCHC 32.6 RDW Std Deviation 41.9 RDW Coeff of Kailyn 13.0 Plt Count 352 MPV 8.5 Immature Gran % (Auto) 0.1 Neut % (Auto) 69.0 Lymph % (Auto) 13.5 King % (Auto) 11.3 Eos % (Auto) 6.0 Baso % (Auto) 0.1 Immature Gran # (Auto) 0.01 Neut # (Auto) 4.71 Lymph # (Auto) 0.92 L King # (Auto) 0.77 H Eos # (Auto) 0.41 Baso # (Auto) 0.01 ESR 79 H Sodium 131 L Potassium 4.4 Chloride 96 L Carbon Dioxide 28 Anion Gap 7.0 BUN 13 Creatinine 0.84 Est Cr Clr Drug Dosing Not Reportable Est GFR ( Amer) 97.2 Est GFR (Non-Af Amer) 83.9 BUN/Creatinine Ratio 15.4 Glucose 107 H POC Glucose Calcium 8.9 C-Reactive Protein 8.66 H Specimen Hemolysis Nasal Screen MRSA (PCR) 01/30/19 01/30/19 18:53 21:20 WBC RBC Hgb Hct MCV MCH MCHC RDW Std Deviation RDW Coeff of Kailyn Plt Count MPV Immature Gran % (Auto) Neut % (Auto) Lymph % (Auto) King % (Auto) Eos % (Auto) Baso % (Auto) Immature Gran # (Auto) Neut # (Auto) Lymph # (Auto) King # (Auto) Eos # (Auto) Baso # (Auto) ESR Sodium Potassium Chloride Carbon Dioxide Anion Gap BUN Creatinine Est Cr Clr Drug Dosing Est GFR ( Amer) Est GFR (Non-Af Amer) BUN/Creatinine Ratio Glucose POC Glucose 106 H Calcium C-Reactive Protein Specimen Hemolysis Nasal Screen MRSA (PCR) Positive A Diagnostic Findings X-RAY LEFT ELBOW FINDINGS: Alignment of the left elbow is anatomic. No acute fracture is identified. There is a possible left elbow joint effusion. Marked soft tissue swelling overlying olecranon and posterior distal left humerus is identified. Note is also made of cortical irregularity of the posterior aspect of the olecranon and the distal left humerus. IMPRESSION: 1. Marked soft tissue swelling overlying the olecranon and posterior distal left humerus. Differential diagnosis include olecranon bursitis, cellulitis and contusion. 2. Possible left elbow joint effusion. No fracture identified. 3. Irregularity of the posterior cortex of the left olecranon and distal left humerus. This is age indeterminate but raises the possibility of osteomyelitis. Electronically signed by: Richardson Pena M.D. 01/30/2019 2:57 PM Code Status & VTE Plan Code Status Discussed with patient. No living will. Full resuscitation. VTE Prophylaxis Plan VTE Prophylaxis will be ordered: Yes
[2019-01-30] MEDS ORDERED: HYDROmorphone INJ 0.5 MG/0.5 ML SYR IV PRN (18:48)
[2019-01-30] MEDS ORDERED: ACETAMINOPHEN 325 MG TAB PO PRN (18:48)
--- NOTE | 2019-01-30 18:54 | Emergency Department Note ---
Entered by Elodia Nguyễn acting as a scribe for History of Present Illness General Chief complaint: Elbow Injury/Pain Stated complaint: LEFT ELBOW - SWELLING AND SORENESS Time Seen by Provider: 01/30/19 14:12 Source: patient Mode of arrival: wheelchair Limitations: no limitations History of Present Illness Onset (ago): day(s) 2 Location: upper extremity (Left elbow) Radiation: non-radiation Pain Consistency: + constant Current Pain Intensity: 1 Relieved By: + none Exacerbated By: + movement Associated symptoms: + denies other symptoms Treatments prior to arrival: none The patient is a 78 year old male who presents to the ED with complaints of left elbow pain for the past few days. He reports he had a bursectomy in October 2018, and was recovering well until he fell and broke his hip 3 weeks ago. In the past 2 days, the elbow has swelled and become increasingly uncomfortable. He rates his pain as a 1/10 in severity. Movement of the elbow worsens his pain. His bursectomy was performed in [place], [place]. [place]. Guzmán [place] [facility] [place]. Home Medications Home Medications Medication Instructions Recorded Confirmed Type fluticasone propionate [Flonase 2 spray INTRANASAL DAILY 01/09/19 01/30/19 History Allergy Relief] metformin 1,000 mg PO BID 01/09/19 01/30/19 History aspirin 81 mg PO BID #60 tab 01/11/19 01/30/19 Rx acetaminophen [Tylenol Arthritis 1,300 mg PO HS 01/30/19 01/30/19 History Pain] naproxen sodium [Aleve] 220 mg PO AMPM 01/30/19 01/30/19 History polyethylene glycol 3350 [Miralax] 17 g PO QAM 01/30/19 01/30/19 History ranitidine HCl 150 mg PO DAILY 01/30/19 01/30/19 History simvastatin 20 mg PO PM 01/30/19 01/30/19 History Allergies Allergy/AdvReac Type Severity Reaction Status Date / Time Penicillins Allergy Intermediate joints Verified 01/30/19 15:42 swell/redness Sulfa (Sulfonamide Allergy Unknown Unknown Verified 01/30/19 15:42 Antibiotics) Past Med/Surg History Medical History Diabetes Surgical History History of elbow surgery History of total bilateral knee replacement Social History Preferred Language: Maldivian Communication Ability: Effective Medical Records Manager Required: No Beliefs That Will Affect Care: None marital status: Current Living Situation: Spouse Other Information That Helps Us Care for You: No Feels Safe at Home: Yes Safety Concerns: Feels Safe At This Time Smoking Status: Never smoker Hx Alcohol Use: No Hx Substance Use: No Review of Systems See HPI for pertinent positives & negatives. and A total of 10 systems reviewed and were otherwise negative Physical Exam Vital Signs Vital Signs - 24 hr 01/30/19 14:07 01/30/19 16:00 Temperature Source Oral Sepsis Recent Fever Within 48 Hours No Sepsis New/Unexplained Change in Mental Status No Sepsis Action Taken by Nursing No Action Required Pulse Rate 93 H Pulse Rate [Finger] 87 Pulse Rhythm [Finger] Regular Pulse Strength [Finger] Normal Respiratory Rate 20 18 Respiratory Effort / Characteristics Non-Labored Spontaneous Non-Labored Spontaneous Respiratory Depth Normal Normal Respiratory Pattern Regular Blood Pressure 127/77 Blood Pressure [Right Arm] 123/66 Blood Pressure Mean 93 Blood Pressure Mean [Right Arm] 85 Blood Pressure Position [Right Arm] Sitting Pulse Oximetry 96 98 Oxygen Delivery Method Room Air Room Air GENERAL: He is oriented to person, place, and time. He appears well-developed and well-nourished. He does not appear distressed. HENT: Exam performed. - Head: Normocephalic and atraumatic. - Right Ear: External ear normal. No mastoid tenderness. - Left Ear: External ear normal. No mastoid tenderness. - Mouth/Throat: The oropharynx is clear and moist. No trismus in the jaw. No dental abscesses or uvula swelling. No oropharyngeal exudate or tonsillar abscesses. EYES: Conjunctivae and EOM are normal. Pupils are equal, round, and reactive to light. Right eye exhibits no discharge. Left eye exhibits no discharge. No scleral icterus. NECK: Normal range of motion. Neck supple. No JVD present. No spinous process tenderness present. No carotid bruit present. No rigidity. No tracheal deviation and normal range of motion present. No Brudzinski's sign and no Kernig's sign noted. CV: Normal rate, regular rhythm, normal heart sounds and intact distal pulses. There is no peripheral edema. Palpable radial pulses bue. PULM/CHEST: Effort normal and breath sounds normal. No respiratory distress. No stridor. He has no wheezes. He has no rales. - Chest Wall: He exhibits no tenderness. ABD: The abdomen is soft. Bowel sounds are normal. He has no distension. No mass is present. There is no tenderness. There is no rebound, no guarding, no Lowry's sign and no tenderness at McBurney's point. Rovsig negative. MUSC/SKEL:LUE: swelling over left olecranon process with surrounding erythema, full ROM of left shoulder, wrist and elbow. Motor and sensation intact in medial, radial and ulnar nerve distribution. Palpable radial and ulnar pulse. LYMPH: No cervical adenopathy. NEURO: He is alert and oriented to person, place, and time. He has normal strength. No cranial nerve deficit or sensory deficit. Patient is in a wheelchair. Coordination normal. GCS eye subscore is 4. GCS verbal subscore is 5. GCS motor subscore is 6. Cerebellar tests wnl. SKIN: Skin is warm and dry. He is not diaphoretic. PSYCH: He has a normal mood and affect. Behavior is normal. Judgment and thought content normal. Course 1428: The patient was evaluated in room A2 and a complete history and physical were performed. 1645: I reevaluated the patient. VS stable. Labs show no leukocytosis. Elevated CRP and ESR. Given X-ray findings were concerning for osteomyelitis, the patient will be admitted to medicine with an Orthopedics consult. A page has been sent out for Orthopedics. There is no concern for septic joint as the patient has full ROM of the elbow. Patient treated with IV antibiotics vancomycin. I discussed the patients case with Bety John PA-C, [facility]. The patient will be further evaluated. Consultations Consultation #1: I discussed the patients case with Bety John PA-C, [facility]. The patient will be further evaluated. Time: 16:40 Administered Medications Vancomycin HCl 1,500 mg/ (Sodium Chloride) 530 mls @ 200 mls/hr IV NOW ONE Stop: 01/30/19 19:44 Last Admin: 01/30/19 17:32 Dose: 200 mls/hr Documented by: [id number] Medical Decision Making Medical Records Attestation: I reviewed the patient's medical records. Home Medications Current Medication List: was personally reviewed by me Laboratory Data Attestation: I reviewed the patient's lab results. Result diagrams: 01/30/19 15:22 01/30/19 15:22 Lab Results 01/30/19 01/30/19 01/30/19 Range/Units 15:22 15:22 15:22 WBC 6.83 (4.8-10.8) K/uL RBC 4.03 L (4.7-6.1) M/uL Hgb 11.6 L (14.0-18.0) g/dL Hct 35.6 L (42-52) % MCV 88.3 (80-100) fL MCH 28.8 (25-34) pg MCHC 32.6 (32-36) g/dL RDW Std Deviation 41.9 (36.4-46.3) fL RDW Coeff of Kailyn 13.0 (11.5-14.5) % Plt Count 352 (130-400) K/uL MPV 8.5 (7.4-10.4) fL Immature Gran % (Auto) 0.1 % Neut % (Auto) 69.0 % Lymph % (Auto) 13.5 % [place] % (Auto) 11.3 % Eos % (Auto) 6.0 % Baso % (Auto) 0.1 % Immature Gran # (Auto) 0.01 (0.00-0.02) K/uL Neut # (Auto) 4.71 (1.4-6.5) K/uL Lymph # (Auto) 0.92 L (1.2-3.4) K/uL [place] # (Auto) 0.77 H (0.11-0.59) K/uL Eos # (Auto) 0.41 (0-0.5) K/uL Baso # (Auto) 0.01 (0-0.2) K/uL ESR 79 H (0-14) mm/hr Sodium 131 L (136-145) mmol/L Potassium 4.4 (3.5-5.1) mmol/L Chloride 96 L (98-107) mmol/L Carbon Dioxide 28 (21-32) mmol/L Anion Gap 7.0 (3-11) BUN 13 (7-18) mg/dl Creatinine 0.84 (0.6-1.4) mg/dl Est Cr Clr Drug Dosing Not Reportable Est GFR ( Amer) 97.2 Est GFR (Non-Af Amer) 83.9 BUN/Creatinine Ratio 15.4 (10-20) Glucose 107 H (70-99) mg/dl Calcium 8.9 (8.5-10.1) mg/dl C-Reactive Protein 8.66 H (0-0.29) mg/dl Specimen Hemolysis Imaging Data Radiologist's Impression: Radiology results as stated below per my review and the radiologist's interpretation: XR elbow LT min 3V routine CLINICAL HISTORY: Left elbow pain following fall 2 weeks ago. Left elbow surgery in October 2018. COMPARISON: None FINDINGS: Alignment of the left elbow is anatomic. No acute fracture is identified. There is a possible left elbow joint effusion. Marked soft tissue swelling overlying olecranon and posterior distal left humerus is identified. Note is also made of cortical irregularity of the posterior aspect of the ole cranon and the distal left humerus. IMPRESSION: 1. Marked soft tissue swelling overlying the olecranon and posterior distal left humerus. Differential diagnosis include olecranon bursitis, cellulitis and contusion. 2. Possible left elbow joint effusion. No fracture identified. 3. Irregularity of the posterior cortex of the left olecranon and distal left humerus. This is age indeterminate but raises the possibility of osteomyelitis. Electronically signed by: Richardson Pena M.D. 01/30/2019 2:57 PM Blood Pressure Blood Pressure Findings: Normal blood pressure Blood Pressure Disposition: did not require urgent referral MDM Narrative VS stable. Labs show no leukocytosis. Elevated CRP and ESR. Given X-ray findings were concerning for osteomyelitis, the patient will be admitted to medicine with an Orthopedics consult. A page has been sent out for Orthopedics. There is no concern for septic joint as the patient has full ROM of the elbow. Patient treated with IV antibiotics vancomycin. I discussed the patients case with Bety John PA-C, [facility] Hospitalist. The patient will be further evaluated. Impression & Plan Osteomyelitis, Bursitis Discharge Plan Visit Data Chief Complaint: Elbow Injury/Pain Stated Complaint: LEFT ELBOW - SWELLING AND SORENESS ED Provider: Jose J Estrada Discharge Problem: Osteomyelitis, Bursitis Patient Disposition: Being Evaluated by Hospitalist Discharge Instructions Interventions: ED Discharge Assessment Last Done: 01/30/19 18:23 The scribe's documentation has been prepared under my direction and personally reviewed by me in its entirety. I confirm that the note above accurately reflects all work, treatment, procedures, and medical decision making performed by me.
[2019-01-30] MEDS: TRAMADOL HCL 50 MG TABLET PO PRN (20:30)
[2019-01-30] MEDS: ASPIRIN 81 MG CHEW PO SCH (20:30)
[2019-01-30] MEDS: SIMVASTATIN 20 MG TAB PO SCH (20:31)
[2019-01-31] MEDS ORDERED: VANCOMYCIN HCL 1,000 MG in SODIUM CHLORIDE 0.9% 250 ML IV SCH (06:00)
[2019-01-31 07:07] LABS: Creatinine Clr Calc Pharmacy 95.1 ml/min; Est GFR (African American) 109.4; Est GFR (Non-African American) 94.4
[2019-01-31] MEDS: POLYETHYLENE (MIRALAX) 17 GM PACK PO SCH (08:20)
[2019-01-31] MEDS: ASPIRIN 81 MG CHEW PO SCH (08:29)
[2019-01-31] MEDS: FLUTICASONE PROPIONATE NA SPR 16 GM BTL SCH (08:30)
--- NOTE | 2019-01-31 09:47 | Pharmacy Report ---
Pharmacy Abx Initial Consult - Date of Service January 31, 2019 - Pharmacy Dosing Scope Date of Consult: 01/30/19 Consultation requested by: Dr. Morgan Pharmacy is consulted to initiate Vancomycin IV dosing therapy, order appropriate labs and adjust drug dose/frequency. - Subjective The patient is a 78 year old M admitted on 01/30/19 17:27 with recurrent left olecranon bursitis. X-ray of left elbow showed irregularity of the posterior cortex of the left olecranon and distal left humerus raising the possibility of osteomyelitis. MRI ordered. - Objective Height: 5 ft 11 in Weight: 69.6 kg Vital Signs (Past 12hrs): Vital Signs Temp Pulse Resp BP Pulse Ox 01/31/19 07:13 36.5 C 85 18 118/70 96 01/30/19 23:07 36.7 C 89 18 143/78 H 95 Lab Results (24hrs): Laboratory Tests (24 Hours) 01/31/19 01/30/19 01/30/19 06:12 15:22 15:22 WBC Neut # (Auto) ESR 79 H Creatinine 0.63 0.84 Est Cr Clr Drug Dosing 95.1 Not Reportable C-Reactive Protein 8.66 H 01/30/19 15:22 WBC 6.83 Neut # (Auto) 4.71 ESR Creatinine Est Cr Clr Drug Dosing C-Reactive Protein - Assessment & Plan Assessment 78 year old M with recurrent left olecranon bursitis. Possible osteo, awaiting MRI. Carrier + MRSA per nasal screen. Plan Vancomycin for treatment of recurrent left olecranon bursitis, possibly osteomyelitis. Vancomycin IV * Estimated PK Parameters: Vd 0.7 L/kg, Anand 0.08 hr-1, t1/2 8.6hr * Loading dose: 1500 mg (21.5 mg/kg) * Maintenance dose: 1000 mg IV (14 mg/kg) every 8 hours * Goal trough level for bursitis, with possible osteomyelitis : 15 to 20 mcg/mL * Trough level ordered for 02/01/19 Pharmacy will continue to follow and will adjust dose/frequency as necessary. Thank you.
--- NOTE | 2019-01-31 10:45 | XRay Report ---
XR orbits for MRI HISTORY: Metal exposure pre-MRI screening. COMPARISON: None. FINDINGS: There are no radiopaque foreign bodies identified within the orbits. IMPRESSION: No radiopaque foreign bodies identified within the orbits. The above report was generated using voice recognition software. It may contain grammatical, syntax or spelling errors. Electronically signed by: Rah Erazo M.D. 01/31/2019 10:43 AM
--- NOTE | 2019-01-31 12:01 | Hospitalist Progress Note ---
Date of Service January 31, 2019 Assessment & Plan (1) Septic olecranon bursitis of left elbow: Recent bursectomy followed by trauma to the operative site a few months later, now presents with a septic bursitis. Plan for OR to washout this evening. Cont Vancomycin (2) Diabetes mellitus type 2, controlled: BSG qACHS with Lantus and ISS started after explaining rationale for this to patient. (3) Status post fracture of left hip: Recovering from repair of left hip fracture about 3 weeks ago. Continue PT. Ambulate with walker and 50% weightbearing left lower extremity. (4) MRSA (methicillin resistant Staphylococcus aureus) carrier: Nasal MRSA swab obtained after admission was positive. Contact precautions ordered. (5) DVT prophylaxis: Has been taking aspirin 81 mg BID postoperatively for his recent hip fracture. Continue same. Ambulate as able. Full Code Dispo-to OR this evening, then per Ortho Prabha Anand DO [facility] Subjective Feeling better today Denies fevers, chills or other systemic symptoms. Pain and erythema has been progressively worse over last 4 days Ortho saw him and plans for OR later today for septic olecranon bursitis. Recent bursectomy earlier this year. Then fell 3 weeks ago hitting this L elbow and breaking a hip which was surgically repaired. He is 50% weight-bearing at this point. 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 Denies issues with anesthesia in the past. Reports climbing thousands of steps per day without evidence of chest pain or shortness of breath prior to her recent hip issue. Review of Systems Review of Systems: All systems reviewed & are unremarkable except as noted in HPI & below Physical Exam Physical Exam: CONSTITUTIONAL: WNWD, vitals as above, generally well- appearing EYES: normal conjunctivae, no scleral icterus ENT: MMM RESPIRATORY: clear to auscultation bilaterally, no crackles, rales or wheezes, normal respiratory effort CARDIOVASCULAR: regular rate and rhythm, S1 and 2 heard without murmurs, gallops or rubs, no JVD, no peripheral edema GASTROINTESTINAL: normal bowel sounds, soft, nontender, nondistended MUSCULOSKELETAL: L elbow wrapped in clean dressing that was extensive, so wound was not evaluated. SKIN: warm and dry, wound as above. NEUROLOGIC: CN 2-12 grossly intact, no sensory deficit, normal cognition, no gross focal deficits. PSYCHIATRIC: alert cooperative and oriented to person, place and time. Results & Data Vital Signs (Past 12 Hours) Vital Signs Temp Pulse Resp BP Pulse Ox 01/31/19 07:13 36.5 C 85 18 118/70 96 Laboratory Results Short CBC 01/30/19 Range/Units 15:22 WBC 6.83 (4.8-10.8) K/uL Hgb 11.6 L (14.0-18.0) g/dL Hct 35.6 L (42-52) % Plt Count 352 (130-400) K/uL BMP 01/30/19 01/31/19 15:22 06:12 Sodium 131 L Potassium 4.4 Chloride 96 L Carbon Dioxide 28 BUN 13 Creatinine 0.84 0.63 Glucose 107 H Calcium 8.9 Diagnostic Findings L Elbow MRI IMPRESSION: 1. Likely acute full-thickness tear of the medial and mid fibers of the insertional triceps tendon with the lateral one third of the insertional tendon intact. 2. No acute fracture or dislocation. 3. 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 4. Large complex joint effusion with complex fluid also present within the expected location of the olecranon bursa. Findings are nonspecific and may reflect posttraumatic hematoma/hemarthrosis with infectious etiology not excluded. These findings should be correlated clinically. 5. Cortical irregularity about the olecranon process as described on comparison radiographs appears be on a chronic basis with only minimal bone marrow edema n oted. No definite evidence of acute osteomyelitis. Medications Administered Current Inpatient Medications Acetaminophen (Tylenol) 650 mg PO Q4H PRN PRN Reason: pain/fever Stop: 03/01/19 18:47 Aspirin (Aspirin Chew) 81 mg PO BID JULIA Stop: 03/01/19 20:59 Last Admin: 01/31/19 08:29 Dose: 81 mg Documented by: Fluticasone Propionate (Flonase) 2 sprays NA DAILY JULIA Stop: 03/02/19 08:59 Last Admin: 01/31/19 08:30 Dose: 2 sprays Documented by: Hydromorphone HCl (Dilaudid) 0.5 mg IV Q3H PRN PRN Reason: Severe Pain Stop: 02/13/19 18:47 Vancomycin HCl 1,000 mg/ (Sodium Chloride) 270 mls @ 125 mls/hr IV Q8H [facility] Stop: 03/14/19 13:59 Miscellaneous Information (Consult) 1 ea N/A UD PRN PRN Reason: Consult Stop: 03/01/19 19:24 Polyethylene Glycol (Miralax Powder Packet) 17 gm PO QAM JULIA Stop: 03/02/19 08:59 Last Admin: 01/31/19 08:20 Dose: Not Given Documented by: Ranitidine HCl (Zantac) 150 mg PO DAILY JULIA Stop: 03/02/19 08:59 Last Admin: 01/31/19 08:29 Dose: 150 mg Documented by: Simvastatin (Zocor) 20 mg PO PM JULIA Stop: 03/01/19 20:59 Last Admin: 01/30/19 20:31 Dose: 20 mg Documented by: Tramadol HCl (Ultram) 50 mg PO Q4H PRN PRN Reason: Moderate Pain Stop: 03/01/19 19:08 Last Admin: 01/30/19 20:30 Dose: 50 mg Documented by:
--- NOTE | 2019-01-31 12:48 | Magnetic Resonance Report ---
MR elbow LT wo con CLINICAL HISTORY: 78 years-old Male with left olecranon bursitis; possible osteomyelitis. Acute on c hronic left elbow pain with reported prior arthrocentesis and reported elbow bursal resection in October 2018. COMPARISON: Left elbow radiographs 01/30/2019. TECHNIQUE: Multiplanar, multi sequence MRI of the left elbow was performed without intravenous contra st. FINDINGS: Study is limited secondary to motion artifact. LATERAL COLLATERAL LIGAMENT: The lateral collateral ligament is thickened with age-indeterminate par tial-thickness tearing of the proximal insertional fibers. Moderate thickening of the ligament compat ible with associated sprain. COMMON EXTENSOR TENDON: Large fluid-filled defect is noted within the insertional common extensor te ndon compatible with high-grade partial-thickness tearing. MEDIAL COLLATERAL LIGAMENT: Mild thickening of the ulnar collateral ligament suggestive of chronic s prain. There may be low-grade partial-thickness tearing about the proximal fibers. No full-thickness tear. COMMON FLEXOR TENDON: Intermediate grade tearing of the proximal common flexor tendon measures up to 9 mm in length on image 23 series 13. No full-thickness tear identified. MUSCLES: The biceps and brachialis tendon insertions are normal in appearance. No evidence of tear or strain. There is an acute appearing full-thickness tear about the medial and mid fibers of the ins ertional triceps measuring up to 1.2 x 0.9 cm on image 14 series 12 and image 16 series 13. A few ret racted and redundant fibers are noted within this distribution with large amount of adjacent soft tis amanda edema. ULNAR NERVE: The ulnar nerve is not well-visualized. BONE MARROW: There is moderate to severe osteoarthritis of the trochlea olecranon articulation with mild to moderate radiocapitellar osteoarthritis. Large subcortical cystic change about the trochlea w ith areas of full-thickness chondral loss and prominent subcortical cystic change/edema. No definite acute fracture identified. There is cortical irregularity again noted about the olecranon process whi ch appears to be chronic with only minimal associated bone marrow edema. SOFT TISSUES: Large complex joint effusion with synovial thickening suggestive of synovitis. Large c omplex collection within the olecranon bursa distribution measures 4.3 x 2.5 x 3.2 cm which demonstra jason intermediate T1 signal. IMPRESSION: 1. Likely acute full-thickness tear of the medial and mid fibers of the insertional triceps tendon wi th the lateral one third of the insertional tendon intact. 2. No acute fracture or dislocation. 3. 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 4. Large complex joint effusion with complex fluid also present within the expected location of the o lecranon bursa. Findings are nonspecific and may reflect posttraumatic hematoma/hemarthrosis with inf ectious etiology not excluded. These findings should be correlated clinically. 5. Cortical irregularity about the olecranon process as described on comparison radiographs appears b e on a chronic basis with only minimal bone marrow edema noted. No definite evidence of acute osteomy elitis. The above report was generated using voice recognition software. It may contain grammatical, syntax o r spelling errors. Dictated: 01/31/2019 11:58 AM Transcribed: 01/31/2019 12:41 PM Milagro [id number] [email or web address]_Alan Electronically signed by: Chris Miranda M.D. 01/31/2019 12:47 PM
--- NOTE | 2019-01-31 13:01 | Orthopedic Consultation ---
Date of Consultation January 31, 2019 Assessment & Plan (1) Septic olecranon bursitis of left elbow: Culture of left elbow exudate was sent for aerobic anaerobic cultures. Patient is currently n.p.o. and he has been added onto the surgical schedule for today for irrigation and debridement I have reviewed the case with him. There was concern for osteomyelitis of the olecranon on plain film however MRI results are showing less likely so. Hospitalist service aware of pending s urgery. History of Present Illness Reason for Consultation: Left olecranon bursitis Attending Physician: Prabha Anand DO History of Present Illness Patient is a 78-year-old white male known to our practice who is status post ORIF of his left hip with 7.3 cannulated screws. Patient states that he was transferred to [facility] for further rehab. He stayed there 6 days and then transitioned over to [facility] to continue his physical therapy. He states that the hip is been doing fine and healing well without any difficulty. Over the last 2 to 3 days prior to admission he began noticing an increased red ness and swelling of his left elbow. By yesterday, the swelling was quite tense and painful and he came into the emergency room. He was admitted and started on IV antibiotics. He states that when he got up to the bathroom last night, as he was entering the bathroom, and area over the elbow opened up and he had a lot of purulent drainage. The wound was covered and nursing has been continuing to change the dressings. Currently he states that he is having minimal discomfort since he had a spontaneous evacuation. He denies any fevers or chills. He denies nausea or vomiting. Allergies Allergy/AdvReac Type Severity Reaction Status Date / Time Penicillins Allergy Intermediate joints Verified 01/30/19 15:42 swell/redness Sulfa (Sulfonamide Allergy Unknown Unknown Verified 01/30/19 15:42 Antibiotics) Home Medications Home Medications Medication Instructions Recorded Confirmed Type fluticasone propionate [Flonase 2 spray INTRANASAL DAILY 01/09/19 01/30/19 History Allergy Relief] metformin 1,000 mg PO BID 01/09/19 01/30/19 History aspirin 81 mg PO BID #60 tab 01/11/19 01/30/19 Rx acetaminophen [Tylenol Arthritis 1,300 mg PO HS 01/30/19 01/30/19 History Pain] naproxen sodium [Aleve] 220 mg PO AMPM 01/30/19 01/30/19 History polyethylene glycol 3350 [Miralax] 17 g PO QAM 01/30/19 01/30/19 History ranitidine HCl 150 mg PO DAILY 01/30/19 01/30/19 History simvastatin 20 mg PO PM 01/30/19 01/30/19 History Patient History Medical History 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) Status post fracture of left hip (Chronic) Dyslipidemia (Chronic) Diabetes mellitus type 2, controlled (Chronic) Surgical History History of elbow surgery (Chronic) History of total bilateral knee replacement Family History Mother Heart disease Father Coronary heart disease Social History Preferred Language: Surinamese Communication Ability: Effective Associate Marketing Manager Required: No Beliefs That Will Affect Care: None marital status: Current Living Situation: Spouse Other Information That Helps Us Care for You: No Feels Safe at Home: Yes Safety Concerns: Feels Safe At This Time Smoking Status: Never smoker Hx Alcohol Use: No Hx Substance Use: No Physical Exam Physical Exam: On examination, the patient is a well-developed will nourished white male who is alert oriented x3 and in no acute distress. Pleasant and cooperative. On examination of his left elbow, he has a dressing on the elbow which is removed. There is a small hole over the elbow itself that is approximately 8 mm in width. He has some thick yellow to greenish exudate that is sticking out of the wound. I was able to push on the elbow and a fair amount of greenish thick exudate was expressed onto his dressing. A culture was then taken of the exudate as I began expressing it again out of the elbow. The wound was covered with a bulky dressing and wrapped in a Kerlix. His range of motion was not overtly affected of the elbow. No other complaints of pain radiating down into the wrist or hand. No complaints of pain radiating up into the shoulder or axilla. No obvious red streaks or striations going down or up the extremity. He denies any decreased sensation in the left hand. He has good range of motion of his fingers and wrist. Capillary refill is less than 2 seconds. Results & Data Vital Signs (Past 12 Hours) Vital Signs Temp Pulse Resp BP Pulse Ox 01/31/19 07:13 36.5 C 85 18 118/70 96 Laboratory Results Laboratory Results WBC 6.83 K/uL (4.8-10.8) 01/30/19 15: RBC 4.03 M/uL (4.7-6.1) L 01/30/19 15: Hgb 11.6 g/dL (14.0-18.0) L 01/30/19: Hct 35.6 % (42-52) L 01/30/19 15: MCV 88.3 fL (80-100) 01/30/19 15: MCH 28.8 pg (25-34) 01/30/19 15: MCHC 32.6 g/dL (32-36) 01/30/19 15: RDW Std Deviation 41.9 fL (36.4-46.3) 01/30/19 15: RDW Coeff of Kailyn 13.0 % (11.5-14.5) 01/30/19: Plt Count 352 K/uL (130-400) 01/30/19 15: MPV 8.5 fL (7.4-10.4) 01/30/19: Immature Gran % (Auto) 0.1 % 01/30/19: Neut % (Auto) 69.0 % 01/30/19 15: Lymph % (Auto) 13.5 % 01/30/19: Cavalier % (Auto) 11.3 % 01/30/19: Eos % (Auto) 6.0 % 01/30/19: Baso % (Auto) 0.1 % 01/30/19 15: Immature Gran # (Auto) 0.01 K/uL (0.00-0.02) 01/30/19: Neut # (Auto) 4.71 K/uL (1.4-6.5) 01/30/19 15:22 Lymph # (Auto) 0.92 K/uL (1.2-3.4) L 01/30/19 15:22 Cavalier # (Auto) 0.77 K/uL (0.11-0.59) H 01/30/19 15:22 Eos # (Auto) 0.41 K/uL (0-0.5) 01/30/19 15:22 Baso # (Auto) 0.01 K/uL (0-0.2) 01/30/19 15:22 ESR 79 mm/hr (0-14) H 01/30/19 15:22 Sodium 131 mmol/L (136-145) L 01/30/19 15:22 Potassium 4.4 mmol/L (3.5-5.1) 01/30/19 15:22 Chloride 96 mmol/L (98-107) L 01/30/19 15:22 Carbon Dioxide 28 mmol/L (21-32) 01/30/19 15:22 Anion Gap 7.0 (3-11) 01/30/19 15:22 BUN 13 mg/dl (7-18) 01/30/19 15:22 Creatinine 0.63 mg/dl (0.6-1.4) 01/31/19 06:12 Est Cr Clr Drug Dosing 95.1 ml/min 01/31/19 06:12 Est GFR ( Amer) 109.4 01/31/19 06:12 Est GFR (Non-Af Amer) 94.4 01/31/19 06:12 BUN/Creatinine Ratio 15.4 (10-20) 01/30/19 15:22 Glucose 107 mg/dl (70-99) H 01/30/19 15:22 POC Glucose 106 (70-99) H 01/31/19 05:42 Calcium 8.9 mg/dl (8.5-10.1) 01/30/19 15:22 C-Reactive Protein 8.66 mg/dl (0-0.29) H 01/30/19 15:22 Specimen Hemolysis 01/30/19 15:22 Nasal Screen MRSA (PCR) Positive (Negative) A 01/30/19 21:20 Diagnostic Findings [facility], [place] [phone] Magnetic Resonance Report Patient: TOYIN OLEA Date: 01/30/19 MR#: [id number]: 1939 [facility] Acct ID:[id number]: [facility]UD[facility] Zip[facility] [place] [address] Age: 78Location: 3N Sex: M Room/Bed: [facility] Att Phy: Prabha Anand DODiagnosis: LEFT ELBOW PAIN Kimberly Phy: Arpita Daugherty at [facility] Date: 01/31/19 Fam Phy:Interpreting Phy: Tee Miranda Admit Phy: Delon Morgan MD Ordering Phy: Delon Morgan MD cc: ~ MR elbow LT wo con CLINICAL HISTORY: 78 years-old Male with left olecranon bursitis; possible osteomyelitis. Acute on chronic left elbow pain with reported prior arthrocentesis and reported elbow bursal resection in October 2018. COMPARISON: Left elbow radiographs 01/30/2019. TECHNIQUE: Multiplanar, multi sequence MRI of the left elbow was performed without intravenous contrast. FINDINGS: Study is limited secondary to motion artifact. LATERAL COLLATERAL LIGAMENT: The lateral collateral ligament is thickened with age-indeterminate partial-thickness tearing of the proximal insertional fibers. Moderate thickening of the ligament compatible with associated sprain. COMMON EXTENSOR TENDON: Large fluid-filled defect is noted within the insertional common extensor tendon compatible with high-grade partial-thickness tearing. MEDIAL COLLATERAL LIGAMENT: Mild thickening of the ulnar collateral ligament suggestive of chronic sprain. There may be low-grade partial-thickness tearing about the proximal fibers. No full-thickness tear. COMMON FLEXOR TENDON: Intermediate grade tearing of the proximal common flexor tendon measures up to 9 mm in length on image 23 series 13. No full-thickness tear identified. MUSCLES: The biceps and brachialis tendon insertions are normal in appearance. No evidence of tear or strain. There is an acute appearing full-thickness tear about the medial and mid fibers of the insertional triceps measuring up to 1.2 x 0.9 cm on image 14 series 12 and image 16 series 13. A few retracted and redundant fibers are noted within this distribution with large amount of adjacent soft tissue edema. ULNAR NERVE: The ulnar nerve is not well-visualized. BONE MARROW: There is moderate to severe osteoarthritis of the trochlea olecranon articulation with mild to moderate radiocapitellar osteoarthritis. Large subcortical cystic change about the trochlea with areas of full-thickness chondral loss and prominent subcortical cystic change/edema. No definite acute fracture identified. There is cortical irregularity again noted about the olecranon process which appears to be chronic with only minimal associated bone marrow edema. SOFT TISSUES: Large complex joint effusion with synovial thickening suggestive of synovitis. Large complex collection within the olecranon bursa distribution measures 4.3 x 2.5 x 3.2 cm which demonstrates intermediate T1 signal. IMPRESSION: 1. Likely acute full-thickness tear of the medial and mid fibers of the insertional triceps tendon with the lateral one third of the insertional tendon intact. 2. No acute fracture or dislocation. 3. 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 4. Large complex joint effusion with complex fluid also present within the expected location of the olecranon bursa. Findings are nonspecific and may r eflect posttraumatic hematoma/hemarthrosis with infectious etiology not excluded. These findings should be correlated clinically. 5. Cortical irregularity about the olecranon process as described on comparison radiographs appears be on a chronic basis with only minimal bone marrow edema noted. No definite evidence of acute osteomyelitis. The above report was generated using voice recognition software. It may contain grammatical, syntax or spelling errors. Dictated: 01/31/2019 11:58 AM Transcribed: 01/31/2019 12:41 PM Milagro [id number] NTS_Alan [place], [place] [phone] XRay Report Patient: TOYIN OLEA Date: 01/30/19 MR#: [id number]: 1939 [facility] Acct ID:[id number]: TIFFANY ESCUDERO [facility] Date: [address] [place] [address] Zip: [place] [address] Age: 78Location: ED Sex: M Room/Bed: Att Phy:Diagnosis: LEFT ELBOW - SWELLING AND SORENESS Kimberly Phy: Arpita Daugherty at [facility] Date: 01/30/19 Fam Phy:Interpreting Phy: Richardson Pena MD Admit Phy: Ordering Phy: Jose J Estrada M.D. cc: ~ XR elbow LT min 3V routine CLINICAL HISTORY: Left elbow pain following fall 2 weeks ago. Left elbow surgery in October 2018. COMPARISON: None FINDINGS: Alignment of the left elbow is anatomic. No acute fracture is identified. There is a possible left elbow joint effusion. Marked soft tissue swelling overlying olecranon and posterior distal left humerus is identified. Note is also made of cortical irregularity of the posterior aspect of the olecranon and the distal left humerus. IMPRESSION: 1. Marked soft tissue swelling overlying the olecranon and posterior distal left humerus. Differential diagnosis include olecranon bursitis, cellulitis and contusion. 2. Possible left elbow joint effusion. No fracture identified. 3. Irregularity of the posterior cortex of the left olecranon and distal left humerus. This is age indeterminate but raises the possibility of osteomyelitis.
[2019-01-31] MEDS ORDERED: CARBOHYDRATES FOR HYPOGLYCEMIA PO PRN (14:27)
[2019-01-31] MEDS ORDERED: DEXTROSE 50% 50 ML SYRINGE IV PRN (14:27)
[2019-01-31] MEDS ORDERED: GLUCOSE 40% GEL 15 GM TUBE PO PRN (14:27)
[2019-01-31] MEDS ORDERED: GLUCOSE 10 TABS/TUBE PO PRN (14:27)
[2019-01-31] MEDS ORDERED: GLUCAGON FOR INJ 1 MG VIAL SQ PRN (14:27)
[2019-01-31] MEDS: VANCOMYCIN HCL 1,000 MG in SODIUM CHLORIDE 0.9% 250 ML IV SCH ×2 (14:35→22:26)
[2019-01-31] MEDS: INSULIN ASPART 100 UNITS/ML 3 ML PEN SC SCH ×2 (17:18→22:31)
--- NOTE | 2019-01-31 17:38 | History & Physical Bridge Note ---
Date of Service January 31, 2019 History & Physical Bridge Note I have examined the patient, reviewed the History & Physical and in the interval since the performance of the History & Physical I have noted the following changes of clinical significance: no changes noted
[2019-01-31] MEDS ORDERED: BACITRACIN INJ 50,000 UNIT VIAL ONE (17:41)
--- NOTE | 2019-01-31 17:42 | Anesthesiology Consultation ---
Date of Service January 31, 2019 Assessment & Plan Chart Review Chart Review: Acceptable Risk for Surgery and Patient NOT seen in Pre Admission Testing Consults Requested none ASA ASA3 Proposed Anesthesia Anesthesia Type: General Risk / Benefits Reviewed With: PT / POA / Parent / Guardian, Accepts Plan and Informed Consent Obtained History Surgery Operation Date: 01/31/19 11:45 Proposed Procedures p Left Septic Olecranon Bursitis Incision and Drainage - Champ Pineda MD Height/Weight Height: 5 ft 11 in Weight: 69.6 kg Allergies Allergy/AdvReac Type Severity Reaction Status Date / Time Penicillins Allergy Intermediate joints Verified 01/30/19 15:42 swell/redness Sulfa (Sulfonamide Allergy Unknown Unknown Verified 01/30/19 15:42 Antibiotics) Medications Home Medications Medication Instructions Recorded Confirmed Last Taken fluticasone propionate [Flonase 2 spray INTRANASAL DAILY 01/09/19 01/30/19 01/30/19 08:00 Allergy Relief] metformin 1,000 mg PO BID 01/09/19 01/30/19 01/30/19 08:00 aspirin 81 mg PO BID #60 tab 01/11/19 01/30/19 01/30/19 08:00 acetaminophen [Tylenol Arthritis 1,300 mg PO HS 01/30/19 01/30/19 Unknown Pain] naproxen sodium [Aleve] 220 mg PO AMPM 01/30/19 01/30/19 01/30/19 08:00 polyethylene glycol 3350 [Miralax] 17 g PO QAM 01/30/19 01/30/19 Unknown ranitidine HCl 150 mg PO DAILY 01/30/19 01/30/19 01/30/19 08:00 simvastatin 20 mg PO PM 01/30/19 01/30/19 Unknown Active Medications Generic Name Dose Route Start Last Admin Trade Name Freq PRN Reason Stop Dose Admin Aspirin 81 mg 01/30/19 21:00 01/31/19 08:29 Aspirin Chew PO 03/01/19 20:59 81 mg BID JULIA Administration Fluticasone Propionate 2 sprays 01/31/19 09:00 01/31/19 08:30 Flonase NA 03/02/19 08:59 2 sprays DAILY JULIA Administration Vancomycin HCl 1,000 mg/ 270 mls @ 125 mls/hr 01/31/19 14:00 01/31/19 17:12 Sodium Chloride IV 03/14/19 13:59 Infused Q8H JULIA Infusion Insulin Aspart 0 units 01/31/19 16:30 01/31/19 17:18 Novolog Flexpen SC 03/02/19 16:29 Not Given ACHS JULIA Polyethylene Glycol 17 gm 01/31/19 09:00 01/31/19 08:20 Miralax Powder Packet PO 03/02/19 08:59 Not Given QAM JULIA Ranitidine HCl 150 mg 01/31/19 09:00 01/31/19 08:29 Zantac PO 03/02/19 08:59 150 mg DAILY JULIA Administration Simvastatin 20 mg 01/30/19 21:00 01/30/19 20:31 Zocor PO 03/01/19 20:59 20 mg PM JULIA Administration Tramadol HCl 50 mg 01/30/19 19:09 01/30/19 20:30 Ultram PO 03/01/19 19:08 50 mg Q4H PRN Administration Moderate Pain NPO Date Last Intake of Fluids: 01/30/19 Time Last Intake of Fluids: 19:30 Date Last Intake of Solids: 01/30/19 Time Last Intake of Solids: 19:30 Past Medical History Medical History 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) Status post fracture of left hip (Chronic) Dyslipidemia (Chronic) Diabetes mellitus type 2, controlled (Chronic) Exercise / Class Metabolic Activity III < 4 Walking/Shop/Light housework Past Family History Family History Mother Heart disease Father Coronary heart disease Past Surgical History Surgical History History of elbow surgery (Chronic) History of total bilateral knee replacement Past Anesthesia History No Hx of Anesthesia Complications and No Family Hx of Anesthesia Complications History of PONV No Hx of PONV and No Hx of Motion Sickness Social History Smoking Status: Never smoker Hx Alcohol Use: No Hx Substance Use: No Physical Exam Vital Signs Last Vital Signs Temp 36.5 C 01/31/19 17:27 Pulse 99 H 01/31/19 17:27 Resp 16 01/31/19 17:27 BP 128/80 01/31/19 17:27 Pulse Ox 99 01/31/19 17:27 Constitutional no acute distress, not obese and no altered mental status ENMT Mouth: no dentition abnormality Thyromental Distance: > or= 3.5 Finger Breadths Mallampati Class: II Neck normal visual inspection and trachea midline; neck extension not limited Respiratory normal respiratory effort Auscultation: lungs clear to auscultation bilaterally Cardiovascular Rate/Rhythm: regular rate and regular rhythm Heart Sounds: no murmur Vessels: no carotid bruit Musculoskeletal Spine: normal cervical ROM Neurologic moves all extremities Motor/Sensory: no sensory deficit Psychiatric Orientation: alert and oriented x 3 Testing Laboratory Results 01/30/19 15:22 01/31/19 06:12 01/31/19 01/31/19 12:08 05:42 POC Glucose 118 H 106 H Electrocardiogram Date: 01/08/19 Findings: + NSR @ (at 81) Chest X-Ray Date: 01/08/19 Findings: + NAD
[2019-01-31] MEDS ORDERED: fentaNYL citrate 100 MCG/2 ML VIAL ONE (19:20)
[2019-01-31] MEDS ORDERED: BUPIVACAINE 0.5 % 5 MG/1 ML MPF 30ML VIAL ONE (19:46)
--- NOTE | 2019-01-31 20:30 | Operative Report ---
Post Operative Report Pre & Post Diagnosis Operation Date: 01/31/19 11:45 Pre-Op Diagnosis: olecranon bursitis of left elbow Post-Op Diagnosis: olecranon bursitis of left elbow I identified the patient and participated in the time-out.: Yes Procedure Operation Date: 01/31/19 11:45 Actual Procedures p Left Septic Olecranon Bursitis Incision and Drainage(Left) - Champ Pineda MD Surgeon Champ Pineda MD Hospice Spiritual Care Coordinator none Estimated Blood Loss 5 Findings Consistent with Post-Op Diagnosis Specimens Cultures Drains Iodoform packing Anesthesia Type General Complications none Disposition Accompanied Patient To Recovery: No Disposition: Recovery Room Indications The patient is a 78-year-old male who is about 3 weeks out from open reduction internal fixation of left hip fracture. He was at rehab utilizing the left arm more for his partial weightbearing. He previously had olecranon bursitis that was treated in his summer home in [facility] initially with antibiotics and subsequently underwent open excision. That had done well postoperatively. Last 3 days has been having increasing pain swelling redness of olecranon bursa. He is now having purulent drainage. Description of Procedure Risks, benefits and alternatives to surgery including, but not limited to, infection, DVT, pain, stiffness, need for revision surgery, failure to relieve all symptoms, damage to blood vessels, damage to nerves, risk of the anesthesia were discussed with the patient and they wished to proceed. The patient was identified. Laterality was confirmed and marked. The patient received a preoperative antibiotic. They were transferred to the operating room and placed in supine position and induced into general endotracheal anesthesia per the anesthesia staff. A well-padded tourniquet was placed on the arm and the limb was prepped and draped in the usual standard manner with Betadine. The tourniquet was inflated. I then made a longitudinal incision over the olecranon bursa. There was a region that had already opened and I extended this a little bit and then excised the skin edges. We then encountered purulent material and this material was cultured. We then performed a sharp debridement down to level of bone debriding all of the material from the olecranon bursa. The wound was then thoroughly irrigated with bacitracin normal saline. The bursa was packed with iodoform. The wound was closed with interrupted 3-0 nylon suture. A sterile dressing was applied and the tourniquet was released. All needle and sponge counts were correct at the end of the procedure. The patient was transferred to the PACU in stable condition without apparent complication. The PA-C was necessary for assistance with procedure for assistance in positioning, prepping, draping, retraction and closure. I attest to the content of the Intraoperative Record and any orders documented therein. Any exceptions are noted below.
[2019-01-31] MEDS ORDERED: fentaNYL citrate 100 MCG/2 ML VIAL IV PRN (20:35)
[2019-01-31] MEDS ORDERED: ONDANSETRON INJ 2 MG/ML 2 ML VIAL IV PRN ×2 (20:35→21:23)
[2019-01-31] MEDS ORDERED: LABETALOL HCL IV 5 MG/ML 20ML IV PRN (20:35)
[2019-01-31] MEDS ORDERED: NALOXONE HCL 0.4 MG/1 ML VIAL/CARP IV PRN ×2 (20:35→21:23)
[2019-01-31] MEDS ORDERED: PROMETHAZINE HCL 12.5 MG in SODIUM CHLORIDE 0.9% 50 ML IV PRN (20:35)
[2019-01-31] MEDS ORDERED: ATROPINE SULFATE 0.1 MG/ML 10ML SYR IV PRN (20:35)
[2019-01-31] MEDS ORDERED: ePHEDrine sulfate 50 MG/ML AMP IV PRN (20:35)
[2019-01-31] MEDS ORDERED: bisacodyL 10 MG SUPP PR PRN (21:23)
[2019-01-31] MEDS ORDERED: MAGNESIUM HYDROXIDE SUSP 30 ML UDC PO PRN (21:23)
[2019-01-31] MEDS ORDERED: OXYCODONE HCL IR 5 MG TAB (IMMEDIATE RELEASE) PO PRN (21:23)
[2019-01-31] MEDS ORDERED: SODIUM CHLORIDE 0.9% 1000ML 1,000 ML IV SCH (21:23)
[2019-01-31] MEDS ORDERED: HYDROmorphone INJ 0.5 MG/0.5 ML SYR IV PRN (21:23)
[2019-01-31] MEDS: SIMVASTATIN 20 MG TAB PO SCH (21:31)
[2019-01-31] MEDS: DOCUSATE SODIUM 100 MG CAP PO SCH (22:12)
--- NOTE | 2019-01-31 22:14 | Anesthesiology Progress Note ---
Date of Service January 31, 2019 Anesthesia Post Procedure Vital Signs Vital Signs: Temp Pulse Pulse Resp BP Pulse Ox 01/31/19 21:46 36.5 C 86 16 130/71 97 01/31/19 21:21 36.5 C 87 16 127/74 99 01/31/19 21:10 36.8 C 84 17 115/74 100 01/31/19 21:00 85 17 121/78 100 01/31/19 20:50 88 24 117/66 100 01/31/19 20:40 85 13 115/69 100 01/31/19 20:34 36.8 C 85 15 123/81 100 01/31/19 17:27 36.5 C 99 H 16 128/80 99 01/31/19 15:11 36.9 C 87 16 121/74 97 01/31/19 07:13 36.5 C 85 18 118/70 96 01/30/19 23:07 36.7 C 89 18 143/78 H 95 Pain Intensity Left Elbow: Pain Intensity: 5 Transfer of Care Handoff Completed per policy Notes Mental Status: alert / awake / arousable Patient Amnestic to Procedure: Yes Nausea / Vomiting: adequately controlled Pain: adequately controlled Airway Patency, RR, SpO2: stable & adequate BP & HR: stable & adequate Hydration State: stable & adequate Anesthetic Complications: no major complications apparent
[2019-01-31] MEDS: INSULIN GLARGINE SOLOSTAR 100 UNITS/ML 3 ML PEN SC SCH (22:31)
[2019-02-01] MEDS: TRAMADOL HCL 50 MG TABLET PO PRN ×4 (00:22→22:03)
[2019-02-01] MEDS ORDERED: VANCOMYCIN TROUGH ONE (05:30)
[2019-02-01] MEDS: VANCOMYCIN HCL 1,000 MG in SODIUM CHLORIDE 0.9% 250 ML IV SCH ×3 (05:43→22:25)
[2019-02-01 06:01] LABS: Hematocrit (blood only) 34.9 % (42-52); Hemoglobin 11.6 g/dL (14.0-18.0); Mean Corpuscular Hemoglobin 29.3 pg (25-34); Mean Corpuscular Hgb Conc 33.2 g/dL (32-36); Mean Corpuscular Volume 88.1 fL (80-100); Mean Platelet Volume 8.4 fL (7.4-10.4); Platelet Count 347 K/uL (130-400); RDW Coefficient of Variation 13.2 % (11.5-14.5); RDW Standard Deviation 42.5 fL (36.4-46.3); Red Blood Count 3.96 M/uL (4.7-6.1)
[2019-02-01 06:29] LABS: BUN Creatinine Ratio 19.3 (10-20); Calcium 8.8 mg/dl (8.5-10.1); Creatinine Clr Calc Pharmacy 105.1 ml/min; Est GFR (Non-African American) 98.4; Potassium 3.8 mmol/L (3.5-5.1)
[2019-02-01 07:44] LABS: Estimated Average Glucose 146 mg/dl; Hemoglobin A1C 6.7 % (4.5-5.6)
[2019-02-01] MEDS: ASPIRIN 81 MG CHEW PO SCH ×2 (09:09→22:04)
[2019-02-01] MEDS: INSULIN GLARGINE SOLOSTAR 100 UNITS/ML 3 ML PEN SC SCH ×2 (09:10→22:06)
[2019-02-01] MEDS: INSULIN ASPART 100 UNITS/ML 3 ML PEN SC SCH ×4 (09:10→22:07)
[2019-02-01] MEDS: FLUTICASONE PROPIONATE NA SPR 16 GM BTL SCH (09:10)
[2019-02-01] MEDS: POLYETHYLENE (MIRALAX) 17 GM PACK PO SCH (09:10)
[2019-02-01] MEDS: DOCUSATE SODIUM 100 MG CAP PO SCH ×2 (09:16→22:04)
--- NOTE | 2019-02-01 09:47 | Hospitalist Progress Note ---
Date of Service February 01, 2019 Assessment & Plan (1) Septic olecranon bursitis of left elbow: Recent bursectomy followed by trauma to the operative site a few months later, now presents with a septic bursitis. OR last night s/p I&D. Cont Vancomycin (2) Diabetes mellitus type 2, controlled: BSG qACHS with Lantus and ISS (3) Status post fracture of left hip: Recovering from repair of left hip fracture about 3 weeks ago. Continue PT. Ambulate with walker and 50% weightbearing left lower extremity. (4) MRSA (methicillin resistant Staphylococcus aureus) carrier: Nasal MRSA swab obtained after admission was positive. Contact precautions ordered. (5) DVT prophylaxis: Has been taking aspirin 81 mg BID postoperatively for his recent hip fracture. Continue same. Ambulate as able. Full Code Dispo-to OR this evening, then per Ortho ROS-No Headache, No Visual Changes, No Nausea, No Vomiting, No Fever, No Chills, No Neck Pain or Stiffness, No Chest Pain, No Palpitations, No SOB, No MCCALL, No Cough, No Sputum, No Wheezing, No Abdominal Pain, No Diarrhea, No Hematemesis, No Hemoptysis, No Unexpected Weight Loss, No Flank pain, No Melena, No Hematochezia, No Frequency, No Urgency, No Burning, No Hematuria, No Rashes, No Diaphoresis. Appetite is Normal, Sore elbow Physical Exam Gen-AAO x 3, NAD, Afebrile Head-NCAT, EOMI, PERRLA, Anicteric Sclera, No Posterior Pharyngeal Erythema Neck-Supple, No JVD, No Thyromegaly, No Masses, No LAD, No Bruits Lungs-Clear to Auscultation Bilaterally, No Rales, No Rhonchi, No Wheezing, No Crepitus Chest-No S4, +S1, +S2, No S3, No Murmurs, No Rubs, No Gallops, No Ectopy Abdomen-Soft, Bowel Sounds Present, Non Tender, Non Distended, No Hepatomegaly, No Splenomegaly, No Palpable Masses, No Rebound, No Rigidity, No Guarding Musculoskeletal-Full Range of Motion Bilaterally, No CVAT Extremities-No Cyanosis, No Clubbing, No Edema Nuero-Cranial Nerves II-XII grossly intact, Motor WNL, DTRs WNL, Strength WNL, Non Focal Psych-Normal Mood Labs checked Results & Data Vital Signs (Past 12 Hours) Vital Signs Temp Pulse Resp BP Pulse Ox 02/01/19 07:48 36.5 C 82 18 139/80 95 02/01/19 03:54 36.5 C 87 18 135/76 96 02/01/19 00:34 36.7 C 76 18 122/74 97 01/31/19 23:43 36.6 C 89 18 119/67 95 01/31/19 22:22 36.3 C L 87 18 145/80 H 96 01/31/19 21:46 36.5 C 86 16 130/71 97
[2019-02-01] MEDS: MULTIVITAMIN TAB PO SCH (10:24)
--- NOTE | 2019-02-01 11:14 | Orthopedic Progress Note ---
Date of Service February 01, 2019 Assessment & Plan (1) Septic olecranon bursitis of left elbow: Postop day 1 status post irrigation debridement left septic olecranon bursitis Cultures were taken at the bedside earlier in the day as well as surgical cultures. The results of these are still pending. We will keep him on empiric antibiotics for now and then that make adjustments as needed. There is iodoform packing in the bursa currently. We will plan for pulling the packing tomorrow He may use the arm to weight-bear through for mobilization for his hip Subjective Minimal pain today. He states there is some drainage that they reinforced overnight but otherwise is doing well. Pain is tolerated. Tolerating p.o. Physical Exam Physical Exam: Left upper extremity: Site mask distally neurologically intact. Dressing is intact Results & Data Vital Signs (Past 12 Hours) Vital Signs Temp Pulse Resp BP Pulse Ox 02/01/19 07:48 36.5 C 82 18 139/80 95 02/01/19 03:54 36.5 C 87 18 135/76 96 02/01/19 00:34 36.7 C 76 18 122/74 97 01/31/19 23:43 36.6 C 89 18 119/67 95
--- NOTE | 2019-02-01 15:53 | Pharmacy Report ---
Pharmacy Abx Dose Short Note - Date of Service February 01, 2019 - Assessment & Plan Laboratory Tests 02/01/19 05:36 Vancomycin Trough 15.7 Assessment 78 year old M receiving Vancomycin 1000mg IV Q8H for treatment of bursitis. I&D yesterday; Post-op day #1. Cultures currently show no growth. Nasal swab was +MRSA. Day #2 of antimicrobial therapy. Plan Vancomycin * Trough level of 15.7 mcg/mL is therapeutic * Continue dose of 1000 mg IV every 8 hours * Goal trough level for bursitis: 15 to 20 mcg/mL * Trough level ordered for: 02/02/19 at 1330 Pharmacy will continue to follow and will adjust dose/frequency as necessary. Thank you.
[2019-02-01] MEDS: SIMVASTATIN 20 MG TAB PO SCH (22:05)
[2019-02-02] MEDS: TRAMADOL HCL 50 MG TABLET PO PRN ×3 (05:12→21:27)
[2019-02-02] MEDS: VANCOMYCIN HCL 1,000 MG in SODIUM CHLORIDE 0.9% 250 ML IV SCH ×3 (05:22→21:27)
[2019-02-02 05:56] LABS: Hematocrit (blood only) 35.4 % (42-52); Hemoglobin 11.7 g/dL (14.0-18.0); Mean Corpuscular Hemoglobin 29.2 pg (25-34); Mean Corpuscular Hgb Conc 33.1 g/dL (32-36); Mean Corpuscular Volume 88.3 fL (80-100); Mean Platelet Volume 8.4 fL (7.4-10.4); Platelet Count 307 K/uL (130-400); RDW Standard Deviation 41.9 fL (36.4-46.3); Red Blood Count 4.01 M/uL (4.7-6.1)
[2019-02-02 06:36] LABS: BUN Creatinine Ratio 19.8 (10-20); Calcium 8.9 mg/dl (8.5-10.1); Creatinine Clr Calc Pharmacy 99.9 ml/min; Est GFR (African American) 111.6; Est GFR (Non-African American) 96.3; Potassium 3.8 mmol/L (3.5-5.1)
--- NOTE | 2019-02-02 09:09 | Orthopedic Progress Note ---
Date of Service February 02, 2019 Assessment & Plan (1) Septic olecranon bursitis of left elbow: Postop day 2 status post irrigation debridement left septic olecranon bursitis Cultures were taken at the bedside earlier in the day as well as surgical cultures. No growth to date. We will keep him on empiric antibiotics for now and then that make adjustments as needed. Daily dressing changes. No further surgery needed at this time. He may use the arm to weight-bear through for mobilization for his hip Subjective Patient currently sitting up at the bedside in his chair eating breakfast. No complaints. Pain is controlled. Physical Exam Physical Exam: His current dressing was noted to be reinforced which he states was shortly after the surgery. It has not bled through her drainage has not come through since that time. Dressing is removed. Erythema surrounding the elbow at this time. No overt drainage or purulence noted. Packing removed. No purulent drainage noted when removed. No residual drainage coming from the wound. Redressed with Adaptic, 4 x 4's, Kerlix wrap. Good range of motion of his elbow at this time without discomfort. Results & Data Vital Signs (Past 12 Hours) Vital Signs Temp Pulse Resp BP Pulse Ox 02/02/19 07:46 37.0 C 90 16 112/73 94 02/01/19 23:20 36.7 C 86 18 132/80 96
[2019-02-02] MEDS: DOCUSATE SODIUM 100 MG CAP PO SCH ×2 (09:37→21:29)
[2019-02-02] MEDS: FLUTICASONE PROPIONATE NA SPR 16 GM BTL SCH (09:37)
[2019-02-02] MEDS: POLYETHYLENE (MIRALAX) 17 GM PACK PO SCH (09:37)
[2019-02-02] MEDS: ASPIRIN 81 MG CHEW PO SCH ×2 (09:37→21:28)
[2019-02-02] MEDS: MULTIVITAMIN TAB PO SCH (09:37)
[2019-02-02] MEDS: INSULIN ASPART 100 UNITS/ML 3 ML PEN SC SCH ×5 (09:40→21:16)
[2019-02-02] MEDS: INSULIN GLARGINE SOLOSTAR 100 UNITS/ML 3 ML PEN SC SCH ×2 (09:40→21:28)
--- NOTE | 2019-02-02 10:26 | Hospitalist Progress Note ---
Date of Service February 02, 2019 Assessment & Plan (1) Septic olecranon bursitis of left elbow: Recent bursectomy followed by trauma to the operative site a few months later, now presents with a septic bursitis. OR last night s/p I&D. Cont Vancomycin, remove some packing today per Ortho (2) Diabetes mellitus type 2, controlled: BSG qACHS with Lantus and ISS (3) Status post fracture of left hip: Recovering from repair of left hip fracture about 3 weeks ago. Continue PT. Ambulate with walker and 50% weightbearing left lower extremity. (4) MRSA (methicillin resistant Staphylococcus aureus) carrier: Nasal MRSA swab obtained after admission was positive. Contact precautions ordered. (5) DVT prophylaxis: Has been taking aspirin 81 mg BID postoperatively for his recent hip fracture. Continue same. Ambulate as able. Full Code Dispo-DC home when cultures back ROS-No Headache, No Visual Changes, No Nausea, No Vomiting, No Fever, No Chills, No Neck Pain or Stiffness, No Chest Pain, No Palpitations, No SOB, No MCCALL, No Cough, No Sputum, No Wheezing, No Abdominal Pain, No Diarrhea, No Hematemesis, No Hemoptysis, No Unexpected Weight Loss, No Flank pain, No Melena, No Hematochezia, No Frequency, No Urgency, No Burning, No Hematuria, No Rashes, No Diaphoresis. Appetite is Normal, Sore elbow Physical Exam Gen-AAO x 3, NAD, Afebrile Head-NCAT, EOMI, PERRLA, Anicteric Sclera, No Posterior Pharyngeal Erythema Neck-Supple, No JVD, No Thyromegaly, No Masses, No LAD, No Bruits Lungs-Clear to Auscultation Bilaterally, No Rales, No Rhonchi, No Wheezing, No Crepitus Chest-No S4, +S1, +S2, No S3, No Murmurs, No Rubs, No Gallops, No Ectopy Abdomen-Soft, Bowel Sounds Present, Non Tender, Non Distended, No Hepatomegaly, No Splenomegaly, No Palpable Masses, No Rebound, No Rigidity, No Guarding Musculoskeletal-Full Range of Motion Bilaterally, No CVAT Extremities-No Cyanosis, No Clubbing, No Edema Nuero-Cranial Nerves II-XII grossly intact, Motor WNL, DTRs WNL, Strength WNL, Non Focal Psych-Normal Mood Labs checked Results & Data Vital Signs (Past 12 Hours) Vital Signs Temp Pulse Resp BP Pulse Ox 02/02/19 07:46 37.0 C 90 16 112/73 94 02/01/19 23:20 36.7 C 86 18 132/80 96
[2019-02-02] MEDS ORDERED: VANCOMYCIN TROUGH ONE (13:30)
--- NOTE | 2019-02-02 14:52 | Pharmacy Report ---
Pharmacy Abx Dose Short Note - Date of Service February 02, 2019 - Assessment & Plan Laboratory Tests 02/02/19 13:18 Vancomycin Trough 17.6 Assessment 78 year old M receiving Vancomycin 1000mg IV q8h for treatment of septic bursitis of left elbow Day #4 of antimicrobial therapy. Plan Vancomycin * Trough level of 17.6 mcg/mL is therapeutic * Continue dose of 1000 mg IV every 8 hours * Goal trough level for bursitis: 15 to 20 mcg/mL * Trough level ordered for: 02/04/19 at 0530 Pharmacy will continue to follow and will adjust dose/frequency as necessary. Thank you.
[2019-02-02] MEDS: SIMVASTATIN 20 MG TAB PO SCH (21:29)
[2019-02-03] MEDS: VANCOMYCIN HCL 1,000 MG in SODIUM CHLORIDE 0.9% 250 ML IV SCH ×3 (04:56→21:14)
[2019-02-03] MEDS: TRAMADOL HCL 50 MG TABLET PO PRN ×2 (04:56→21:22)
[2019-02-03 05:11] LABS: Hematocrit (blood only) 34.5 % (42-52); Hemoglobin 11.5 g/dL (14.0-18.0); Mean Corpuscular Hemoglobin 29.2 pg (25-34); Mean Corpuscular Hgb Conc 33.3 g/dL (32-36); Mean Corpuscular Volume 87.6 fL (80-100); Mean Platelet Volume 8.1 fL (7.4-10.4); Platelet Count 316 K/uL (130-400); RDW Coefficient of Variation 12.9 % (11.5-14.5); RDW Standard Deviation 41.7 fL (36.4-46.3); Red Blood Count 3.94 M/uL (4.7-6.1)
[2019-02-03 05:45] LABS: BUN Creatinine Ratio 20.8 (10-20); Calcium 8.7 mg/dl (8.5-10.1); Creatinine Clr Calc Pharmacy 88.1 ml/min; Est GFR (Non-African American) 91.5; Potassium 3.9 mmol/L (3.5-5.1)
[2019-02-03] MEDS: INSULIN ASPART 100 UNITS/ML 3 ML PEN SC SCH ×4 (08:27→21:07)
[2019-02-03] MEDS: ASPIRIN 81 MG CHEW PO SCH ×2 (08:28→21:06)
[2019-02-03] MEDS: DOCUSATE SODIUM 100 MG CAP PO SCH ×2 (08:28→21:07)
[2019-02-03] MEDS: MULTIVITAMIN TAB PO SCH (08:28)
[2019-02-03] MEDS: INSULIN GLARGINE SOLOSTAR 100 UNITS/ML 3 ML PEN SC SCH ×2 (08:30→21:10)
[2019-02-03] MEDS: FLUTICASONE PROPIONATE NA SPR 16 GM BTL SCH (08:30)
[2019-02-03] MEDS: POLYETHYLENE (MIRALAX) 17 GM PACK PO SCH (08:31)
--- NOTE | 2019-02-03 08:40 | Hospitalist Progress Note ---
Date of Service February 03, 2019 Assessment & Plan (1) Septic olecranon bursitis of left elbow: Recent bursectomy followed by trauma to the operative site a few months later, now presents with a septic bursitis. OR last night s/p I&D. Cont Vancomycin, ID eval for home Abx (2) Diabetes mellitus type 2, controlled: BSG qACHS with Lantus and ISS (3) Status post fracture of left hip: Recovering from repair of left hip fracture about 3 weeks ago. Continue PT. Ambulate with walker and 50% weightbearing left lower extremity. (4) MRSA (methicillin resistant Staphylococcus aureus) carrier: Nasal MRSA swab obtained after admission was positive. Contact precautions ordered. (5) DVT prophylaxis: Has been taking aspirin 81 mg BID postoperatively for his recent hip fracture. Ambulate as able. Full Code Dispo-DC home when cultures back or as per ID recommendations ROS-No Headache, No Visual Changes, No Nausea, No Vomiting, No Fever, No Chills, No Neck Pain or Stiffness, No Chest Pain, No Palpitations, No SOB, No MCCALL, No Cough, No Sputum, No Wheezing, No Abdominal Pain, No Diarrhea, No Hematemesis, No Hemoptysis, No Unexpected Weight Loss, No Flank pain, No Melena, No Hematochezia, No Frequency, No Urgency, No Burning, No Hematuria, No Rashes, No Diaphoresis. Appetite is Normal, Sore elbow Physical Exam Gen-AAO x 3, NAD, Afebrile Head-NCAT, EOMI, PERRLA, Anicteric Sclera, No Posterior Pharyngeal Erythema Neck-Supple, No JVD, No Thyromegaly, No Masses, No LAD, No Bruits Lungs-Clear to Auscultation Bilaterally, No Rales, No Rhonchi, No Wheezing, No Crepitus Chest-No S4, +S1, +S2, No S3, No Murmurs, No Rubs, No Gallops, No Ectopy Abdomen-Soft, Bowel Sounds Present, Non Tender, Non Distended, No Hepatomegaly, No Splenomegaly, No Palpable Masses, No Rebound, No Rigidity, No Guarding Musculoskeletal-Full Range of Motion Bilaterally, No CVAT Extremities-No Cyanosis, No Clubbing, No Edema Nuero-Cranial Nerves II-XII grossly intact, Motor WNL, DTRs WNL, Strength WNL, Non Focal Psych-Normal Mood Labs checked Results & Data Vital Signs (Past 12 Hours) Vital Signs Temp Pulse Resp BP Pulse Ox 02/03/19 08:01 36.5 C 82 16 113/70 96 02/02/19 23:15 36.6 C 93 H 16 119/79 93
--- NOTE | 2019-02-03 09:53 | Anesthesiology Progress Note ---
Date of Service February 03, 2019 Anesthesia Post Procedure Vital Signs Vital Signs: Temp Pulse Resp BP Pulse Ox 02/03/19 08:01 36.5 C 82 16 113/70 96 02/02/19 23:15 36.6 C 93 H 16 119/79 93 02/02/19 15:17 36.6 C 80 18 114/70 98 Pain Intensity Left Elbow: Pain Intensity: 3 Notes Mental Status: alert / awake / arousable and participated in evaluation Nausea / Vomiting: adequately controlled Pain: adequately controlled Airway Patency, RR, SpO2: stable & adequate BP & HR: stable & adequate Hydration State: stable & adequate Anesthetic Complications: no major complications apparent and Pt Satisfied with anesthetic care
--- NOTE | 2019-02-03 10:40 | Infectious Disease Consult ---
Date of Consultation February 03, 2019 Assessment & Plan (1) Septic olecranon bursitis of left elbow: no cultures + to guide therapy, recurrent collection. with nasal MRSA swab + will treat emperically for this. explained to patient that cultures are negative. would suggest continue vanco while in hospital. upon d/c would suggest Dalvance 1500mg IV x 2 doses, 2 weeks apart. this can be done at [facility]. He is agreeable to this. will follow. History of Present Illness Attending Physician: Jean Joy DO pt admitted with increased swelling and redness of left elbow. was recently hospitalized for hip fracture, repaired and healing well. had bursitis in October - was treated with clinda and 1 other abx at that time with no improvement, was then referred to ortho and underwent bursectomy, tolerated well. was doing well until [address] in ER - 4.3x2.5x3.2 cm collection, this spontaneously opened and bedside culture obtained, many wbc, no bacteria, culture negative. Went to OR on 01/31 - OR cultures negative as well. was not on abx prec[employer]. afebrile since admission, denies f/c at home. wbc 6.9, creat 0.6, on emperic vanco and tolerating well. No blood cultures done. he is oob to chair, states he is feeling well. no pain, packing removed, states draiange from elbow was thick and cloudy. no abd pain, no n/v/d. no cp, sob, cough. He lives in [place] but is in the area through February for football season. Allergies Allergy/AdvReac Type Severity Reaction Status Date / Time Penicillins Allergy Intermediate joints Verified 01/30/19 15:42 swell/redness Sulfa (Sulfonamide Allergy Unknown Unknown Verified 01/30/19 15:42 Antibiotics) Home Medications Home Medications Medication Instructions Recorded Confirmed Type fluticasone propionate [Flonase 2 spray INTRANASAL DAILY 01/09/19 01/30/19 History Allergy Relief] metformin 1,000 mg PO BID 01/09/19 01/30/19 History aspirin 81 mg PO BID #60 tab 01/11/19 01/30/19 Rx acetaminophen [Tylenol Arthritis 1,300 mg PO HS 01/30/19 01/30/19 History Pain] naproxen sodium [Aleve] 220 mg PO AMPM 01/30/19 01/30/19 History polyethylene glycol 3350 [Miralax] 17 g PO QAM 01/30/19 01/30/19 History ranitidine HCl 150 mg PO DAILY 01/30/19 01/30/19 History simvastatin 20 mg PO PM 01/30/19 01/30/19 History Patient History Medical History 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) Status post fracture of left hip (Chronic) Dyslipidemia (Chronic) Diabetes mellitus type 2, controlled (Chronic) Surgical History History of elbow surgery (Chronic) History of total bilateral knee replacement Family History Mother Heart disease Father Coronary heart disease Social History Preferred Language: Hebrew Communication Ability: Effective [employer] Required: No Beliefs That Will Affect Care: None marital status: Current Living Situation: Spouse Other Information That Helps Us Care for You: No Feels Safe at Home: Yes Safety Concerns: Feels Safe At This Time Smoking Status: Never smoker Hx Alcohol Use: No Hx Substance Use: No Review of Systems Review of Systems: All systems reviewed & are unremarkable except as noted in HPI & below Physical Exam Constitutional: WD/WN, vitals as above Eyes: PERRL, conjunctivae normal, anicteric sclerae ENMT: external ear and nose normal, oropharynx normal Neck: normal visual inspection Respiratory: normal respiratory effort, lungs clear to auscultation Cardiovascular: RRR, no murmur, no edema Gastrointestinal (Abdomen): normal bowel sounds, soft, nontender, no hepatosplenomegaly Musculoskeletal: no cyanosis or clubbing, extremities motor strength 5/5 Skin: no rashes, warm and dry + wound (dressing c/d/i, non tender, no erythema. ) Psychiatric: A+Ox3, euthymic affect Results & Data Vital Signs (Past 12 Hours) Vital Signs Temp Pulse Resp BP Pulse Ox 02/03/19 08:01 36.5 C 82 16 113/70 96 02/02/19 23:15 36.6 C 93 H 16 119/79 93 Laboratory Results Microbiology 01/31/19 12:30 Elbow Gram Stain - Final 01/31/19 12:30 Elbow Aerobic and Anaerobic Culture - Preliminary No growth to date. 01/31/19 20:03 Elbow Gram Stain - Final 01/31/19 20:03 Elbow Aerobic and Anaerobic Culture - Preliminary No growth to date. PG Care Time/CCT Total # of Minutes Spent Total Time Spent with Patient: Total time spent is greater than 50% in coordination of care (as documented) at patient's floor/unit and/or counseling patient:
--- NOTE | 2019-02-03 12:54 | Orthopedic Progress Note ---
Date of Service February 03, 2019 Assessment & Plan (1) Septic olecranon bursitis of left elbow: Postop day 3 status post irrigation debridement left septic olecranon bursitis No growth to date. On Vancomycin, I&D on board We will keep him on empiric antibiotics for now and then that make adjustments as needed. Daily dressing changes. No further surgery needed at this time. He may use the arm to weight-bear through for mobilization for his hip Ortho will sign off, follow up with Dr Pineda 12-14 days post op, call [phone] for appt. Thank You, please call with any questions. Subjective Patient currently sitting up at the bedside in his chair eating Lunch. No complaints. Pain is controlled. Denies SOB, CP, N/V. Physical Exam Physical Exam: Left elbow incision c/d/i, sutures in tact. No drainage, no erythema. Skin edges approximated well. No swelling. N/V+. Results & Data Vital Signs (Past 12 Hours) Vital Signs Temp Pulse Resp BP Pulse Ox 02/03/19 08:01 36.5 C 82 16 113/70 96
[2019-02-03] MEDS: SIMVASTATIN 20 MG TAB PO SCH (21:08)
[2019-02-04] MEDS: TRAMADOL HCL 50 MG TABLET PO PRN (03:52)
[2019-02-04] MEDS ORDERED: VANCOMYCIN TROUGH ONE (05:30)
[2019-02-04 06:13] LABS: Hematocrit (blood only) 34.4 % (42-52); Hemoglobin 11.6 g/dL (14.0-18.0); Mean Corpuscular Hemoglobin 29.3 pg (25-34); Mean Corpuscular Hgb Conc 33.7 g/dL (32-36); Mean Corpuscular Volume 86.9 fL (80-100); Mean Platelet Volume 8.4 fL (7.4-10.4); Platelet Count 336 K/uL (130-400); RDW Coefficient of Variation 12.8 % (11.5-14.5); RDW Standard Deviation 41.3 fL (36.4-46.3); Red Blood Count 3.96 M/uL (4.7-6.1); White Blood Count 6.44 K/uL (4.8-10.8)
[2019-02-04] MEDS: VANCOMYCIN HCL 1,000 MG in SODIUM CHLORIDE 0.9% 250 ML IV SCH (06:17)
[2019-02-04 06:51] LABS: BUN Creatinine Ratio 25.9 (10-20); Calcium 8.7 mg/dl (8.5-10.1); Creatinine Clr Calc Pharmacy 98.3 ml/min; Est GFR (African American) 110.9; Est GFR (Non-African American) 95.7; Potassium 3.9 mmol/L (3.5-5.1)
[2019-02-04] MEDS: INSULIN ASPART 100 UNITS/ML 3 ML PEN SC SCH ×3 (08:38→15:02)
[2019-02-04] MEDS: DOCUSATE SODIUM 100 MG CAP PO SCH (08:39)
[2019-02-04] MEDS: ASPIRIN 81 MG CHEW PO SCH (08:39)
[2019-02-04] MEDS: MULTIVITAMIN TAB PO SCH (08:39)
[2019-02-04] MEDS: FLUTICASONE PROPIONATE NA SPR 16 GM BTL SCH (08:40)
[2019-02-04] MEDS: POLYETHYLENE (MIRALAX) 17 GM PACK PO SCH (08:40)
[2019-02-04] MEDS: INSULIN GLARGINE SOLOSTAR 100 UNITS/ML 3 ML PEN SC SCH (08:41)
--- NOTE | 2019-02-04 09:22 | Pharmacy Report ---
Pharmacy Abx Dose Short Note - Date of Service February 04, 2019 - Assessment & Plan Assessment 78 year old M receiving vancomycin for treatment of septic bursitis of elbow. ID following and recommends to continue empiric treatment without cultures available and positive MRSA swab. On discharge, patient will transition to [facility] to be done as an outpatient. Day # 6 of antimicrobial therapy. SCr remains stable Plan Vancomycin * Trough level of 20.2 mcg/mL is slightly supratherapeutic * Change to 1000 mg IV every 10 hours * Goal trough level for septic bursitis without definitive cultures : 15 to 20 mcg/mL * Trough level ordered for: 02/06/19 prior to the 8 am dose Pharmacy will continue to follow and will adjust dose/frequency as necessary. Thank you.
--- NOTE | 2019-02-04 09:38 | Discharge Summary ---
Date of Service February 04, 2019 Admission HPI Per Admitting Provider 78-year-old gentleman previously from the [place] area. Now lives in [place], but spends football season in [place] every year. History of diabetes mellitus type 2 well-controlled on metformin and dyslipid emia. In October of this year he developed pain and swelling of his left elbow. He was diagnosed with a left olecranon bursitis. Treated with antibiotics without improvement. Eventually, a bursectomy was performed. To the patient's knowledge, there were never any positive fluid/wound cultures. Admitted to [facility] on 01/08/2019 with a left hip fracture secondary to mechanical fall. When he fell, he had some abrasions of his left elbow and right hand. Repair of hip fracture performed by Dr. Guzmán and he went to [facility] for skilled care. Now permitted 50% weightbearing on the left lower extremity and using a walker. 2 days ago he noticed some swelling of his left elbow. Over the past 1 to 2 days the swelling has become significantly worse. Erythema noted, but no significant warmth. No fever or chills. Taking acetaminophen and naproxen without much benefit. Admission Exam Per Admitting Provider Constitutional: WD/WN, vitals as above no acute distress Eyes: PERRL, conjunctivae normal, anicteric sclerae ENMT: external ear and nose normal, oropharynx normal Neck: trachea midline, no thyromegaly Respiratory: normal respiratory effort, lungs clear to auscultation Cardiovascular: Rate/Rhythm: regular rate Heart Sounds: no gallop, no murmur and no cardiac rub Vessels: no JVD Extremities: normal capillary refill; no calf tenderness and no edema Gastrointestinal (Abdomen): normal bowel sounds, soft, nontender, no hepatosplenomegaly Musculoskeletal: Head/Neck/Chest: neck supple Extremities: strength 5/5 throughout; no cyanosis and no clubbing erythema and swelling left elbow Skin: no rashes, warm and dry Neurologic: PERRL, EOMI no facial palsy no dysarthria or aphasia Psychiatric: Orientation: alert and oriented x 3 Affect: euthymic affect Lymphatic: no cervical lymphadenopathy Principal Diagnosis (1) Septic olecranon bursitis of left elbow: (2) Diabetes mellitus type 2, controlled: (3) Status post fracture of left hip: (4) MRSA (methicillin resistant Staphylococcus aureus) carrier: Discharge Exam Gen-AAO x 3, NAD, Afebrile Head-NCAT, EOMI, PERRLA, Anicteric Sclera, No Posterior Pharyngeal Erythema Neck-Supple, No JVD, No Thyromegaly, No Masses, No LAD, No Bruits Lungs-Clear to Auscultation Bilaterally, No Rales, No Rhonchi, No Wheezing, No Crepitus Chest-No S4, +S1, +S2, No S3, No Murmurs, No Rubs, No Gallops, No Ectopy Abdomen-Soft, Bowel Sounds Present, Non Tender, Non Distended, No Hepatomegaly, No Splenomegaly, No Palpable Masses, No Rebound, No Rigidity, No Guarding Musculoskeletal-Full Range of Motion Bilaterally, No CVAT Extremities-No Cyanosis, No Clubbing, No Edema Nuero-Cranial Nerves II-XII grossly intact, Motor WNL, DTRs WNL, Strength WNL, Non Focal Psych-Normal Mood Discharge Data Allergies Allergy/AdvReac Type Severity Reaction Status Date / Time Penicillins Allergy Intermediate joints Verified 01/30/19 15:42 swell/redness Sulfa (Sulfonamide Allergy Unknown Unknown Verified 01/30/19 15:42 Antibiotics) Consultations 01/30/19 16:47 ED Decision to Admit Stat 01/30/19 19:02 Consult Orthopedic Surgery Routine 01/31/19 21:23 Consult Case Management - Discharge Planning Routine 02/03/19 08:38 Consult Infectious Diseases Routine 02/03/19 08:41 Consult Case Management - Discharge Planning Routine Procedures Performed Operation Date: 01/31/19 11:45 Actual Procedures p Left Septic Olecranon Bursitis Incision and Drainage(Left) - Champ Pineda MD Current Diagnoses Type 2 diabetes mellitus without complications (01/31/19) Olecranon bursitis, left elbow (01/31/19) Other infective bursitis, left elbow (01/31/19) Encounter for administrative examinations, unspecified (01/31/19) Carrier or suspected carrier of Methicillin resistant Staphylococcus aureus (01/31/19) Encounter for prophylactic measures, unspecified (01/31/19) Personal history of (healed) traumatic fracture (01/31/19) Allergies Penicillins Allergy (Intermediate, Verified 01/30/19 15:42) joints swell/redness Sulfa (Sulfonamide Antibiotics) Allergy (Unknown, Verified 01/30/19 15:42) Unknown Height/Weight/Isolation Height 5 ft 11 in Weight 69.6 kg Isolation Type Contact Precautions Chemistry 02/03/19 02/04/19 04:48 05:24 Sodium 134 L 134 L Potassium 3.9 3.9 Chloride 100 100 Carbon Dioxide 29 28 Anion Gap 5.0 6.0 BUN 14 16 Creatinine 0.68 0.61 Glucose 89 72 Microbiology 01/31/19 12:30 Elbow Gram Stain - Final 01/31/19 12:30 Elbow Aerobic and Anaerobic Culture - Preliminary No growth to date. Ordered Studies 01/31/19 07:00 MR elbow LT wo con Routine Hospital Course (1) Septic olecranon bursitis of left elbow: Recent bursectomy followed by trauma to the operative site a few months later, presents with a septic bursitis. s/p I&D. Cont Vancomycin, Dalvance 1500 mg x 2 doses 14 days apart in [facility] (2) Diabetes mellitus type 2, controlled: Resume Home Regimen (3) Status post fracture of left hip: Recovering from repair of left hip fracture about 3 weeks ago. Continue PT at [facility]. Ambulate with walker and 50% weightbearing left lower extremity. (4) MRSA (methicillin resistant Staphylococcus aureus) carrier: Nasal MRSA swab obtained after admission was positive. Contact precautions ordered. (5) DVT prophylaxis: Has been taking aspirin 81 mg BID postoperatively for his recent hip fracture. Ambulate as able. Full Code Dispo-DC [facility] today-Auth Pending Total Time Total Time Spent Total Time Spent (In Minutes): 45 mins Total Time Includes: Examination of the Patient, Discharge Planning, Medication Reconciliation and Communication With Other Providers Discharge Plan Discharge Items Patient Disposition: Transfer Inpatient Rehab Fac Reason For Visit: SEPTIC OLECRANON BURSITIS Discharge Diagnosis: (1) Septic olecranon bursitis of left elbow: (2) Diabetes mellitus type 2, controlled: (3) Status post fracture of left hip: (4) MRSA (methicillin resistant Staphylococcus aureus) carrier: Condition on Discharge: Good Activity: Per Instructions section Activity Comment: 50% WB LLE c FWW Lifting: None Bathing: Keep incision dry Sexual Activity: Wait until after follow-up appointment Exercise/Sports: Wait until after follow-up appointment Driving/Machine Use: After done with Rehab Weightbearing: Left partial Non-emergency contact: Primary Care Provider and Surgeon Call non-emergency contact if: you have any medication questions Follow-up/Referrals: Jeanne Lawton DO [Physician] - (2 weeks) Jose Reynaga PA-C [Physician Circular Knitter Helper] - Champ Pineda MD [Surgeon] - (1-2 weeks) [facility] - Diet: Carb Consistent or DM2 and Heart Healthy Addtl Attending Provider Instructions: Routine f/u and as above Pending Studies at Discharge: No Stand-Alone Forms: My [facility] Skilled Items Patient informed of condition?: Yes DNR: No Discharge Level of Care: Acute rehab Communicable Disease: Yes Discharge Prognosis: Improving Lines: None Urinary Catheter: No Medications and DC Order Prescriptions: New tramadol 50 mg Tablet 25 mg PO Q8H PRN (Reason: pain) Qty: 60 RF: 0 bisacodyl [Laxative (bisacodyl)] 10 mg Suppository 10 mg MO DAILY PRN (Reason: constipation) Qty: 30 RF: 0 multivitamin [Daily-Merritt] Tablet 1 tab PO QAM Qty: 100 RF: 0 docusate sodium 100 mg Capsule 100 mg PO BID Qty: 30 RF: 0 Dalvance 500 mg solution 1,500 mg IV .[id number] Qty: 2 RF: 0 Continued metformin 1,000 mg Tablet 1,000 mg PO BID RF: 0 fluticasone propionate [Flonase Allergy Relief] 50 mcg/actuation [place],Suspension 2 spray INTRANASAL DAILY RF: 0 aspirin 81 mg Tablet,Chewable 81 mg PO BID Qty: 60 RF: 0 polyethylene glycol 3350 [Miralax] 17 gram Powder In Packet 17 g PO QAM RF: 0 acetaminophen [Tylenol Arthritis Pain] 650 mg Tablet Extended Release 1,300 mg PO HS RF: 0 naproxen sodium [Aleve] 220 mg Capsule 220 mg PO AMPM RF: 0 simvastatin 20 mg Tablet 20 mg PO PM RF: 0 ranitidine HCl 150 mg Capsule 150 mg PO DAILY RF: 0 Discharge Orders: Discharge Order (Routine); Ordered 02/04/19 Ordered By: Jean Joy Admission Data Admit Date/Time: 01/31/19 14:24 Attending Provider: Jean Joy Admit Provider: Delon Morgan Primary Care Provider: [facility] Other Providers: Delon Morgan ; Crhis Hernández ; Jeanne Lawton
[2019-02-04] MEDS ORDERED: VANCOMYCIN HCL 1,000 MG in SODIUM CHLORIDE 0.9% 250 ML IV SCH (16:00)
[2019-02-06] MEDS ORDERED: VANCOMYCIN TROUGH ONE (07:30)
== END 2019-02-04 18:15 | disposition home or self-care (01) | DRG 502 ==
LOC: 3N 14:01 → ED 14:01 → SUATTDRO 17:27 → 3N 18:23 → SUATTDRO 01-31 14:24